=== PATIENT | female | born 1990 | race Caucasian/White ===

== ENCOUNTER 2017-01-26 15:21 | Inpatient (IN) ==
[2017-01-26] MEDS ORDERED: 0.9 % Sodium Chloride 1,000 ML IVC ONE (15:49)
[2017-01-26] MEDS ORDERED: *HR* Morphine 2 MG/ML SYRINGE IVP ONE ×2 (15:49→22:46)
[2017-01-26 16:19] LABS: Basophils % 0.1 %; Eosinophils # 0.1 K/mcL (0.0-0.6); Eosinophils % 0.7 %; Hematocrit 37.5 % (35.3-44.9); Hemoglobin 12.5 g/dL (11.5-15.4); Immature Granulocytes % 0.5 % (0-4); Lymphocytes # 2.4 K/mcL (0.6-4.6); Lymphocytes % 17.3 %; Mean Corpuscular HGB Conc 33.3 g/dL (31.6-35.5); Mean Corpuscular Hemoglobin 30.9 pg (28.0-33.3); Mean Corpuscular Volume 92.6 fL (83.0-100.0); Mean Platelet Volume 8.7 fL (9.4-12.4); Monocytes # 0.8 K/mcL (0.0-1.3); Monocytes % 5.9 %; Neutrophils # 10.3 K/mcL (1.6-8.9); Platelet Count 249 K/mcL (140-400); Red Blood Count 4.05 M/mcL (3.82-4.97); Red Cell Distribution Width 13.1 % (11.5-14.5); Segmented Neutrophils % 75.5 %
[2017-01-26 16:34] LABS: Alanine Aminotransferase 19 Units/L (0-55); Albumin 3.4 g/dL (3.5-5.0); Albumin/Globulin Ratio 1.1 (1.1-2.2); Alkaline Phosphatase 31 Units/L (38-126); Amylase 38 Units/L (25-125); Aspartate Amino Transferase 19 Units/L (5-34); BUN/Creatinine Ratio 23 (6-26); Bilirubin,Direct 0.2 mg/dL (0.0-0.5); Bilirubin,Indirect 0.3 mg/dL (0.0-1.2); Bilirubin,Total 0.5 mg/dL (0.2-1.2); Blood Urea Nitrogen 14 mg/dL (7-20); Calcium 8.9 mg/dL (8.6-10.8); Carbon Dioxide 22 mEq/L (19-29); Chloride 108 mEq/L (98-109); Globulin 3.2 g/dL (2.4-3.5); Glucose 92 mg/dL (70-99); Lipase 14 Units/L (8-78); Osmolality,Calculated 286 (280-300); Potassium 3.9 mEq/L (3.5-4.5); Sodium 138 mEq/L (136-145); Total Protein 6.6 g/dL (6.0-8.3); eGFR For African Americans > 60 (> 60); eGFR For Non-African Americans > 60 (> 60)
[2017-01-26 18:15] LABS: Bilirubin,Urine Negative (Negative); Blood,Urine Small (Negative); Color,Urine Yellow (Yellow); Glucose,Urine (UA) Normal (Normal); Ketones,Urine Negative (Negative); Leukocyte Esterase,Urine Negative (Negative); Nitrite,Urine Negative (Negative); Protein,Urine Trace mg/dL (Neg-Trace); Urobilinogen,Urine Normal (Normal)
[2017-01-26 18:17] LABS: Bacteria,Urine Moderate per hpf (None-Few); Hyaline Casts,Urine None Seen per lpf (None-Few); Squamous Epithelial Cell,Urine Many per lpf (None-Few); WBC,Urine 0-3 per hpf (0-3)
[2017-01-26 18:18] LABS: Clarity,Urine Slightly Hazy (Clear)
[2017-01-26 18:20] LABS: Amphetamine Screen,Urine Negative ng/mL (Cutoff=1000); Barbiturate Screen,Urine Negative ng/mL (Cutoff=200); Benzodiazepines Screen,Urine Negative ng/mL (Cutoff=200); Cannabinoid Screen,Urine Positive ng/mL (Cutoff = 50); Cocaine Screen,Urine Negative ng/mL (Cutoff= 300); Opiate Screen,Urine Positive ng/mL (Cutoff=300); Phencyclidine Screen,Urine Negative ng/mL (Cutoff=25)
[2017-01-26] MEDS ORDERED: *HR* LORazepam 2 MG/ML VIAL IVP ONE (18:23)
[2017-01-26] MEDS ORDERED: *HR* OxyCODONE/APAP 5/325 TABLET PO ONE (18:23)
[2017-01-26] MEDS ORDERED: MetroNIDAZOLE 250 MG/50 ML 250 MG/50 ML BAG IVPB ONE (18:37)
[2017-01-26] MEDS: Nicotine 21 MG PATCH.TD24 TD SCH (19:30)
--- NOTE | 2017-01-26 19:30 | Internal Med History&Physical ---
Date of Encounter: 01/26/17 Time of Encounter: 19:27 Assessment and Plan (1) Intractable abdominal pain Current visit: Yes Status: Acute Pain in the right lower quadrant, it is only concern is for acute appendicitis. CT of the abdomen did not reveal. With findings consistent with appendicitis. The emergency department physician discussed the case with the surgeon. Surgery did not accept the patient for admission under their service. Patient admitted under medicine for further management. We will continue with IV antibiotics. GI prophylaxis, DVT prophylaxis. A consultation with the surgical team will be requested for further evaluation. IV fluids. Nothing per mouth. Discussed with the patient. Internal Medicine - H&P: HPI Chief complaint: abd pain Admitted From: Emergency Dept Plans for Post Hospital Care: Home History of present illness: Ms. Castellon is a 26 year old female here complaining of abdominal pain which started today at around 2 AM. Pain is associated with lack of appetite and chills, patient denies fever, nausea or vomiting. Patient has some leukocytosis. CT scan of the abdomen was obtained in the emergency department and not clearly identified appendicitis, however would not rule out early appendicitis. ED staff discussed the case with the surgeon who felt that appendicitis is unlikely and recommended IV antibiotics and admission to medicine. The patient denies history of asthma, hypertension, diabetes. She smokes cigarettes 1/2 pack daily and marijuana occasionally. 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 The patient had a recent dental abscess and was prescribed amoxicillin. Past Med Surg Social Fam HX - Past Medical History Medical history: hepatitis, other Psychiatric history: anxiety, bipolar, depression - Social History Smoking Status: Current every day smoker Smokeless Tobacco Status: No Alcohol use: none Drug use: none, other Internal Medicine - H&P: Meds Dicyclomine [Bentyl] 10 mg PO BID #30 capsule 02/13/16 [Rx] Ibuprofen [Motrin] 600 mg PO TID PRN #30 tab 02/13/16 [Rx] Naproxen [Naprosyn] 250 mg PO BID PRN #10 tablet 02/22/16 [Rx] Ondansetron ODT [Zofran ODT] 4 mg SL ONCE PRN #20 tab.rapdis 05/24/16 [Rx] Oxycodone HCl/Acetaminophen [Percocet 5-325 mg Tablet] 1 each PO Q6-8H PRN #15 tablet 07/22/16 [Rx] Ibuprofen [Motrin] 600 mg PO Q8HR #20 tab 05/29/16 [Rx] Ondansetron ODT [Zofran ODT] 4 mg SL Q8HR #20 tab.rapdis 05/29/16 [Rx] Benzonatate [Tessalon] 100 mg PO TID #30 capsule 10/12/16 [Rx] Cefdinir [Omnicef] 300 mg PO BID #10 capsule 10/12/16 [Rx] Amoxicillin 500 mg PO TID #21 tablet 01/24/17 [Rx] HYDROcodone/Acet 10/325 mg [[place] 10-325 mg] 1 tab PO Q6HR PRN #12 tab 01/24/17 [Rx] Allergies Cinnamon Allergy (Verified 01/26/17 15:34) Swelling of Lip/Tongue/Throat All Systems PM: A 10-system review of systems was performed and is negative for pertinent findings except as documented above in the HPI. - Constitutional Constitutional: as per HPI, anorexia, chills, excessive sweating, no fever(s), no night sweats - EENT Eyes: as per HPI, no change in vision, no discharge, no pain, no photophobia Ears: as per HPI, no ear discharge, no ear pain, no tinnitus Nose, mouth and throat: as per HPI, no dysphagia, no nasal discharge, no neck pain, no sore throat - Breasts Breasts: as per HPI - Cardiovascular Cardiovascular ROS IM: as per HPI, no chest pain, no diaphoresis, no dyspnea, no lightheadedness, no palpitations, no syncope - Respiratory Respiratory: as per HPI, no cough, no dyspnea, no wheezing, no excessive phlegm production - Gastrointestinal Gastrointestinal: as per HPI, no abdominal pain, no diarrhea, no hematemesis, no hematochezia, no melena, no nausea, no vomiting - Genitourinary Genitourinary: as per HPI, no change in urinary stream, no dysuria, no flank pain, no hematuria Menstruation: as per HPI - Musculoskeletal Musculoskeletal ROS IM: as per HPI, no numbness, no tingling - Integumentary Integumentary IM: as per HPI, no rash, no unusual bruising - Neurological Neurological ROS: as per HPI, no confusion, no convulsions, no focal weakness, no numbness, no tingling, no tremor(s) - Psychiatric Psychiatric: as per HPI - Endocrine Endocrine IM: as per HPI - Hematologic/Lymphatic Hematologic/Lymphatic: as per HPI, no easy bruising - Allergic/Immunologic Allergic/Immunologic: as per HPI - Constitutional Vitals: Temp Pulse Resp BP Pulse Ox 97.8 F 85 16 110/68 97 01/26/17 15:30 01/26/17 18:00 01/26/17 18:00 01/26/17 18:00 01/26/17 18:00 General appearance: Present: cooperative, no acute distress - Head Head exam: Present: atraumatic, normocephalic - Eye Eye exam: Present: PERRL, conjuntiva pink, sclera anicteric Pupils: Present: PERRL - Neck Neck exam general surgery: Present: supple, trachea midline. Absent: lymphadenopathy - Respiratory Respiratory exam: Present: CTAB. Absent: accessory muscle use, rales, rhonchi, wheezes - Cardiovascular Cardiovascular exam: Present: RRR, +S1, +S2. Absent: diastolic murmur, gallop, rubs, systolic murmur - GI/Abdominal GI/Abdominal exam: Present: normal bowel sounds, soft. Absent: distended, tenderness Additional comments: tenderness upon palpation of RLQ. - Extremities Exam Extremities exam: Present: warm, radial pulses palpable and symetrical. Absent : calf tenderness, cyanotic, pedal edema - Neurological Exam Neurological exam: Present: CN II-XII intact, oriented X3, no focal deficits. Absent: pronater drift, facial droop, speech deficit - Skin Skin exam: Present: dry, intact Internal Med - H&P Results - Labs CBC & Chem 7: 01/26/17 16:08 01/26/17 16:08 Labs: Short CBC 01/26/17 Range/Units 16:08 WBC 13.6 H (4.3-11.1) K/mcL Hgb 12.5 (11.5-15.4) g/dL Hct 37.5 (35.3-44.9) % Plt Count 249 (140-400) K/mcL Neutrophils # 10.3 H (1.6-8.9) K/mcL BMP 01/26/17 16:08 Sodium 138 Potassium 3.9 Chloride 108 Carbon Dioxide 22 BUN 14 Creatinine 0.62 Glucose 92 Calcium 8.9 Liver Function 01/26/17 Range/Units 16:08 Total Bilirubin 0.5 (0.2-1.2) mg/dL Direct Bilirubin 0.2 (0.0-0.5) mg/dL AST 19 (5-34) Units/L ALT 19 (0-55) Units/L Alkaline Phosphatase 31 L (38-126) Units/L Albumin 3.4 L (3.5-5.0) g/dL Urine 01/26/17 Range/Units 18:04 Urine Color Yellow (Yellow) Urine Clarity Slightly Hazy (Clear) Urine pH 8.0 (5.0-8.0) pH Units Ur Specific [place] 1.030 H (1.010-1.025) Urine Protein Trace (Neg-Trace) mg/dL Urine Glucose (UA) Normal (Normal) mg/dL - Impressions ITS Impressions Abdomen/Pelvis CTA 01/26/17 15:50 IMPRESSION: 1. Focal inflammation in the pericolonic fat posterior to the cecum in the region of the appendix. However, the appendix is not dilated and appears similar on the previous CT. The findings may be related to a focal colitis or possibly a diverticulitis. Since the inflammatory changes are immediately adjacent to the appendix, early appendicitis cannot be excluded. Close follow-up recommended. 2. Otherwise unremarkable CTA of the abdomen and pelvis. D/ / 01/26/2017 18:00:57 Kiran Contreras MD / preethi Interpreting Provider: Kiran Contreras MD
[2017-01-26] MEDS ORDERED: Naloxone 0.4 MG/ML INJ IVP PRN (19:51)
[2017-01-26] MEDS ORDERED: Ondansetron 4 MG/2 ML VIAL IVP PRN (19:51)
--- NOTE | 2017-01-26 20:01 | Emergency Department Note ---
Disposition Clinical Impression: Abdominal pain Qualifiers: Abdominal location: right lower quadrant Qualified Code(s): R10.31 - Right lower quadrant pain Disposition: Admitted As Inpatient Condition: Good General Adult HPI - General Chief complaint: ED Abdominal Pain Stated complaint: abd pain Source: patient Nursing Notes Reviewed: Yes Vital Signs Reviewed: Yes - History of Present Illness HPI Narrative: 26-year-old female presents with concern for right lower quadrant abdominal pain. The onset of her symptoms was fairly acute. She admits to extreme tenderness to right lower quadrant. No vomiting but feels nauseous. No diarrhea or blood in her stool. No history of previous abdominal surgeries but she does admit to having ovarian cysts in the past. Pain Scale: 6 - Related Data Previous Rx's Medication Instructions Recorded Dicyclomine [Bentyl] 10 mg PO BID #30 capsule 02/13/16 Ibuprofen [Motrin] 600 mg PO TID PRN #30 tab 02/13/16 Naproxen [Naprosyn] 250 mg PO BID PRN #10 tablet 02/22/16 Ondansetron ODT [Zofran ODT] 4 mg SL ONCE PRN #20 tab.rapdis 05/24/16 Oxycodone HCl/Acetaminophen 1 each PO Q6-8H PRN #15 tablet 05/24/16 [Percocet 5-325 mg Tablet] Ibuprofen [Motrin] 600 mg PO Q8HR #20 tab 05/29/16 Ondansetron ODT [Zofran ODT] 4 mg SL Q8HR #20 tab.rapdis 05/29/16 Benzonatate [Tessalon] 100 mg PO TID #30 capsule 10/12/16 Cefdinir [Omnicef] 300 mg PO BID #10 capsule 10/12/16 Amoxicillin 500 mg PO TID #21 tablet 01/24/17 HYDROcodone/Acet 10/325 mg [[place] 1 tab PO Q6HR PRN #12 tab 01/24/17 10-325 mg] Allergies Allergy/AdvReac Type Severity Reaction Status Date / Time Cinnamon Allergy Swelling Verified 01/26/17 15:34 of Lip/Tongue/Throat All systems ED: reviewed and negative except as stated. Past Medical History - Past Medical History Medical history: Reports: hepatitis, other Psychiatric history: Reports: anxiety, bipolar, depression RESPITE PROVIDER history: Reports: no RESPITE PROVIDER history - Social History Smoking Status: Current every day smoker Smokeless Tobacco Status: No Alcohol use: Reports: none Drug use: Reports: none, other Physical Exam Alert and oriented, complains of abdominal pain Pupils are equal round reactive to light TMs are clear bilaterally, mucous murmurs moist Trachea is midline Cardiovascular exam shows regular rate and rhythm Pulmonary exam shows no rales, rhonchi, wheezing Abdominal examination shows tenderness in the right lower quadrant with localized peritonitis to the right lower quadrant and mild guarding to the right lower quadrant Extremities are without clubbing cyanosis or edema Neurologic exam is without focal neurological deficit Skin is pink warm and dry - General General appearance: alert, in no apparent distress Course Vital Signs Temperature 97.8 F 01/26/17 15:30 Pulse Rate 103 01/26/17 15:30 Respiratory Rate 16 01/26/17 15:30 Blood Pressure 115/79 01/26/17 15:30 O2 Sat by Pulse Oximetry 98 01/26/17 15:30 Temperature 97.8 F 01/26/17 15:30 Pulse Rate 85 01/26/17 18:00 Respiratory Rate 16 01/26/17 18:00 Blood Pressure 110/68 01/26/17 18:00 O2 Sat by Pulse Oximetry 97 01/26/17 18:00 Oxygen Delivery Oxygen Delivery Room Air Medical Decision Making - MDM Narrative Medical decision making narrative: Nonspecific inflammation on CAT scan. This is in the right lower quadrant. It could represent colitis or early appendicitis. I do feel clinically she may have appendicitis. I did discuss the case with the on-call surgeon Dr. Fernandes. He does not feel this represents acute appendicitis but she will need admission for serial raya exams. He is recommending admission to medicine service. Cipro and Flagyl initiated. Pain control was initiated. Patient will be admitted for serial abdominal exams and to rule out appendicitis CURRENTLY treating for possible colitis. I did consider ovarian torsion, differential however she has findings of colitis first appendicitis. - Medical Records Medical records reviewed: Yes I reviewed the patient's medical records. - Lab Data Lab results reviewed: Yes I reviewed the patient's lab results. Result diagrams: 01/26/17 16:08 01/26/17 16:08 Lab Results 01/26/17 01/26/17 01/26/17 Range/Units 16:08 16:08 18:04 WBC 13.6 H (4.3-11.1) K/mcL RBC 4.05 (3.82-4.97) M/mcL Hgb 12.5 (11.5-15.4) g/dL Hct 37.5 (35.3-44.9) % MCV 92.6 (83.0-100.0) fL MCH 30.9 (28.0-33.3) pg MCHC 33.3 (31.6-35.5) g/dL RDW 13.1 (11.5-14.5) % Plt Count 249 (140-400) K/mcL MPV 8.7 L (9.4-12.4) fL Immature Gran % 0.5 (0-4) % Seg Neutrophils % 75.5 % Lymphocytes % 17.3 % Monocytes % 5.9 % Eosinophils % 0.7 % Basophils % 0.1 % Neutrophils # 10.3 H (1.6-8.9) K/mcL Lymphocytes # 2.4 (0.6-4.6) K/mcL Monocytes # 0.8 (0.0-1.3) K/mcL Eosinophils # 0.1 (0.0-0.6) K/mcL Basophils # 0.0 (0.0-0.2) K/mcL Sodium 138 (136-145) mEq/L Potassium 3.9 (3.5-4.5) mEq/L Chloride 108 (98-109) mEq/L Carbon Dioxide 22 (19-29) mEq/L BUN 14 (7-20) mg/dL Creatinine 0.62 (0.57-1.11) mg/dL Est GFR ( Amer) > 60 (> 60) Est GFR (Non-Af Amer) > 60 (> 60) BUN/Creatinine Ratio 23 (6-26) Glucose 92 (70-99) mg/dL Calculated Osmolality 286 (280-300) Calcium 8.9 (8.6-10.8) mg/dL Total Bilirubin 0.5 (0.2-1.2) mg/dL Direct Bilirubin 0.2 (0.0-0.5) mg/dL Indirect Bilirubin 0.3 (0.0-1.2) mg/dL AST 19 (5-34) Units/L ALT 19 (0-55) Units/L Alkaline Phosphatase 31 L (38-126) Units/L Serum Total Protein 6.6 (6.0-8.3) g/dL Albumin 3.4 L (3.5-5.0) g/dL Globulin 3.2 (2.4-3.5) g/dL Albumin/Globulin Ratio 1.1 (1.1-2.2) Amylase 38 (25-125) Units/L Lipase 14 (8-78) Units/L Urine Color Yellow (Yellow) Urine Clarity Slightly Hazy (Clear) Urine pH 8.0 (5.0-8.0) pH Units Ur Specific [place] 1.030 H (1.010-1.025) Urine Protein Trace (Neg-Trace) mg/dL Urine Glucose (UA) Normal (Normal) mg/dL Urine Ketones Negative (Negative) mg/dL Urine Blood Small H (Negative) Urine Nitrite Negative (Negative) Urine Bilirubin Negative (Negative) Urine Urobilinogen Normal (Normal) mg/dL Ur Leukocyte Esterase Negative (Negative) Urine Microscopic RBC 3-5 H (0-3) per hpf Urine Microscopic WBC 0-3 (0-3) per hpf Ur Squamous Epith Cells Many H (None-Few) per lpf Urine Bacteria Moderate H (None-Few) per hpf Hyaline Casts None Seen (None-Few) per lpf Ur Culture Indicated? NO (NO) Urine Test (Negative) Urine Opiates Screen (Iqqvjd=784) ng/mL Ur Barbiturates Screen (Tuwzel=035) ng/mL Ur Phencyclidine Scrn (Cutoff=25) ng/mL Ur Amphetamines Screen (Xxkonk=0341) ng/mL U Benzodiazepines Scrn (Osyyai=168) ng/mL Urine Cocaine Screen (Cutoff= 300) ng/mL U Marijuana (THC) Screen (Cutoff = 50) ng/mL 01/26/17 01/26/17 Range/Units 18:04 18:04 WBC (4.3-11.1) K/mcL RBC (3.82-4.97) M/mcL Hgb (11.5-15.4) g/dL Hct (35.3-44.9) % MCV (83.0-100.0) fL MCH (28.0-33.3) pg MCHC (31.6-35.5) g/dL RDW (11.5-14.5) % Plt Count (140-400) K/mcL MPV (9.4-12.4) fL Immature Gran % (0-4) % Seg Neutrophils % % Lymphocytes % % Monocytes % % Eosinophils % % Basophils % % Neutrophils # (1.6-8.9) K/mcL Lymphocytes # (0.6-4.6) K/mcL Monocytes # (0.0-1.3) K/mcL Eosinophils # (0.0-0.6) K/mcL Basophils # (0.0-0.2) K/mcL Sodium (136-145) mEq/L Potassium (3.5-4.5) mEq/L Chloride (98-109) mEq/L Carbon Dioxide (19-29) mEq/L BUN (7-20) mg/dL Creatinine (0.57-1.11) mg/dL Est GFR ( Amer) (> 60) Est GFR (Non-Af Amer) (> 60) BUN/Creatinine Ratio (6-26) Glucose (70-99) mg/dL Calculated Osmolality (280-300) Calcium (8.6-10.8) mg/dL Total Bilirubin (0.2-1.2) mg/dL Direct Bilirubin (0.0-0.5) mg/dL Indirect Bilirubin (0.0-1.2) mg/dL AST (5-34) Units/L ALT (0-55) Units/L Alkaline Phosphatase (38-126) Units/L Serum Total Protein (6.0-8.3) g/dL Albumin (3.5-5.0) g/dL Globulin (2.4-3.5) g/dL Albumin/Globulin Ratio (1.1-2.2) Amylase (25-125) Units/L Lipase (8-78) Units/L Urine Color (Yellow) Urine Clarity (Clear) Urine pH (5.0-8.0) pH Units Ur Specific [place] (1.010-1.025) Urine Protein (Neg-Trace) mg/dL Urine Glucose (UA) (Normal) mg/dL Urine Ketones (Negative) mg/dL Urine Blood (Negative) Urine Nitrite (Negative) Urine Bilirubin (Negative) Urine Urobilinogen (Normal) mg/dL Ur Leukocyte Esterase (Negative) Urine Microscopic RBC (0-3) per hpf Urine Microscopic WBC (0-3) per hpf Ur Squamous Epith Cells (None-Few) per lpf Urine Bacteria (None-Few) per hpf Hyaline Casts (None-Few) per lpf Ur Culture Indicated? (NO) Urine Test Negative (Negative) Urine Opiates Screen Positive H (Kzbcwt=919) ng/mL Ur Barbiturates Screen Negative (Jicmte=663) ng/mL Ur Phencyclidine Scrn Negative (Cutoff=25) ng/mL Ur Amphetamines Screen Negative (Ineilr=6777) ng/mL U Benzodiazepines Scrn Negative (Ipyjvx=533) ng/mL Urine Cocaine Screen Negative (Cutoff= 300) ng/mL U Marijuana (THC) Screen Positive H (Cutoff = 50) ng/mL
[2017-01-26] MEDS: 0.9 % Sodium Chloride 1,000 ML IVC SCH (21:38)
[2017-01-27] MEDS: Piperacillin/Tazobactam 3.375 GM in D5% in Water (Mini-Bag+) 100 ML IVPB SCH ×4 (00:01→23:47)
[2017-01-27 04:45] LABS: Basophils % 0.4 %; Eosinophils # 0.1 K/mcL (0.0-0.6); Hematocrit 35.3 % (35.3-44.9); Hemoglobin 11.9 g/dL (11.5-15.4); Immature Granulocytes % 0.3 % (0-4); Lymphocytes # 2.8 K/mcL (0.6-4.6); Lymphocytes % 26.9 %; Mean Corpuscular HGB Conc 33.7 g/dL (31.6-35.5); Mean Corpuscular Hemoglobin 31.5 pg (28.0-33.3); Mean Corpuscular Volume 93.4 fL (83.0-100.0); Mean Platelet Volume 9.2 fL (9.4-12.4); Monocytes # 0.7 K/mcL (0.0-1.3); Monocytes % 6.7 %; Neutrophils # 6.7 K/mcL (1.6-8.9); Platelet Count 241 K/mcL (140-400); Red Blood Count 3.78 M/mcL (3.82-4.97); Red Cell Distribution Width 13.2 % (11.5-14.5); Segmented Neutrophils % 64.7 %
[2017-01-27] MEDS ORDERED: *HR* Morphine 2 MG/ML SYRINGE IVP ONE (04:51)
[2017-01-27 04:52] LABS: Alanine Aminotransferase 17 Units/L (0-55); Alkaline Phosphatase 35 Units/L (38-126); Aspartate Amino Transferase 18 Units/L (5-34); BUN/Creatinine Ratio 15 (6-26); Bilirubin,Total 0.5 mg/dL (0.2-1.2); Blood Urea Nitrogen 10 mg/dL (7-20); Calcium 8.2 mg/dL (8.6-10.8); Carbon Dioxide 20 mEq/L (19-29); Chloride 108 mEq/L (98-109); Glucose 88 mg/dL (70-99); Osmolality,Calculated 280 (280-300); Potassium 3.7 mEq/L (3.5-4.5); Sodium 136 mEq/L (136-145); eGFR For African Americans > 60 (> 60); eGFR For Non-African Americans > 60 (> 60)
[2017-01-27] MEDS: Famotidine 20 MG/2 ML VIAL IVP SCH ×2 (05:00→17:03)
[2017-01-27] MEDS: *HR* Heparin 5,000 UNIT/ML VIAL SQ SCH ×2 (05:01→17:03)
--- NOTE | 2017-01-27 07:20 | General Surgery Consult Note ---
Date of Encounter: 01/27/17 Time of Encounter: 07:18 Assessment and Plan (1) Colitis presumed infectious Current Visit: Yes Status: Acute I explained to the patient that I personally reviewed the CT scan images and report which shows some inflammation at the level near the level of the appendix but the appendix itself appears nondistended. His looks primarily like a typhlitis or inflammation at the level of the cecum. Diagnosis does include appendicitis however I think the former is more likely. I agree with IV antibiotics and explained to the patient that he likely takes at least 24-48 hours before there will be any notable improvement in her symptoms. We will follow with you. History of Present Illness Consult date: 01/27/17 Reason for consult: other (right lower abdominal pain) History of present illness: The patient is a 26-year-old female with no significant past medical history who states that 2 days ago she had the onset of some right sided lower quadrant abdominal pain. He felt that she may have pulled something due to some strenuous activity at work. 2 AM on Friday morning the pain was a sharp stabbing pain but tolerable but over the next 24 hours the pain increased in severity so she presented to [facility] for further evaluation. She denies any nausea or vomiting and had diarrhea on Friday 2 days ago. Her last bowel movement was Friday and normally she has a bowel movement 2-3 times per day. Denies any rectal bleeding and denies any fever or chill symptoms at home. Past Med Surg Social Fam HX - Past Medical History Medical history: hepatitis, other Psychiatric history: anxiety, bipolar, depression - Social History Smoking Status: Current every day smoker Smokeless Tobacco Status: No Alcohol use: none Drug use: none, other - Family History Maternal Grandfather Hx Family Cancer: Yes (skin) Hx Family Endocrine Disorder: Yes (DM) Medications and Allergies HYDROcodone/Acet 10/325 mg [[place] 10-325 mg] 1 tab PO Q6HR PRN #12 tab 01/24/17 [Rx] Gabapentin [Neurontin] 600 mg PO TID 01/26/17 [History] Allergies Cinnamon Allergy (Verified 01/27/17 07:13) Swelling of Lip/Tongue/Throat Review of Systems All systems PM: reviewed and no additional remarkable complaints except as stated All systems PM: A 10-system review of systems was performed and is negative for pertinent findings except as documented above in the HPI. General Surgery Exam Initial Vital Signs Temp Pulse Resp BP Pulse Ox 97.8 F 103 16 115/79 98 01/26/17 15:30 01/26/17 15:30 01/26/17 15:30 01/26/17 15:30 01/26/17 15:30 - General physical appearance well developed, well nourished, other (Mild distress) - Eyes PERRL, normal ocular movement - Neck no masses, trachea midline, no lymphadectomy - Respiratory normal expansion, normal respiratory effort, clear to auscultation - Cardiovascular Cardiovascular exam: Present: no murmurs/rubs/gallops - Abdomen Abdomen general surgery: Present: bowel sounds present, soft (obese, pain to palpation in the right lower quadrant. No masses noted.) - Integumentary Integumentary general surgery: Present: warm and dry - Neurologic Present: CN 2-12 grossly intact - Musculoskeletal Present: other (No clubbing, cyanosis, or edema) - Psychiatric Psychiatric general surgery: Present: A&Ox3 Exam Initial Vital Signs Temp Pulse Resp BP Pulse Ox 97.8 F 103 16 115/79 98 01/26/17 15:30 01/26/17 15:30 01/26/17 15:30 01/26/17 15:30 01/26/17 15:30 Results - Labs 01/27/17 04:03 01/27/17 04:03 Abnormal lab results RBC 3.78 M/mcL (3.82-4.97) L 01/27/17 04:03 MPV 9.2 fL (9.4-12.4) L 01/27/17 04:03 Calcium 8.2 mg/dL (8.6-10.8) L 01/27/17 04:03 Alkaline Phosphatase 35 Units/L (38-126) L 01/27/17 04:03 Albumin 3.0 g/dL (3.5-5.0) L 01/27/17 04:03 Albumin/Globulin Ratio 1.0 (1.1-2.2) L 01/27/17 04:03 Ur Specific [place] 1.030 (1.010-1.025) H 01/26/17 18:04 Urine Blood Small (Negative) H 01/26/17 18:04 Urine Microscopic RBC 3-5 per hpf (0-3) H 01/26/17 18:04 Ur Squamous Epith Cells Many per lpf (None-Few) H 01/26/17 18:04 Urine Bacteria Moderate per hpf (None-Few) H 01/26/17 18:04 Urine Opiates Screen Positive ng/mL (Ypeaav=566) H 01/26/17 18:04 U Marijuana (THC) Screen Positive ng/mL (Cutoff = 50) H 01/26/17 18:04 Diabetes panel 01/27/17 Range/Units 04:03 Sodium 136 (136-145) mEq/L Potassium 3.7 (3.5-4.5) mEq/L Chloride 108 (98-109) mEq/L Carbon Dioxide 20 (19-29) mEq/L BUN 10 (7-20) mg/dL Creatinine 0.66 (0.57-1.11) mg/dL Glucose 88 (70-99) mg/dL Calcium 8.2 L (8.6-10.8) mg/dL AST 18 (5-34) Units/L ALT 17 (0-55) Units/L Alkaline Phosphatase 35 L (38-126) Units/L Albumin 3.0 L (3.5-5.0) g/dL Calcium panel 01/27/17 Range/Units 04:03 Calcium 8.2 L (8.6-10.8) mg/dL Albumin 3.0 L (3.5-5.0) g/dL Pituitary panel 01/27/17 Range/Units 04:03 Sodium 136 (136-145) mEq/L Potassium 3.7 (3.5-4.5) mEq/L Chloride 108 (98-109) mEq/L Carbon Dioxide 20 (19-29) mEq/L BUN 10 (7-20) mg/dL Creatinine 0.66 (0.57-1.11) mg/dL Glucose 88 (70-99) mg/dL Calcium 8.2 L (8.6-10.8) mg/dL Adrenal panel 01/27/17 Range/Units 04:03 Sodium 136 (136-145) mEq/L Potassium 3.7 (3.5-4.5) mEq/L Chloride 108 (98-109) mEq/L Carbon Dioxide 20 (19-29) mEq/L BUN 10 (7-20) mg/dL Creatinine 0.66 (0.57-1.11) mg/dL Glucose 88 (70-99) mg/dL Calcium 8.2 L (8.6-10.8) mg/dL Total Bilirubin 0.5 (0.2-1.2) mg/dL AST 18 (5-34) Units/L ALT 17 (0-55) Units/L Alkaline Phosphatase 35 L (38-126) Units/L Albumin 3.0 L (3.5-5.0) g/dL All other labs normal. - Imaging CT scan - abdomen: report reviewed, image reviewed (Noted inflammation near the appendix but the appendix appears normal. The inflammation appears to be at the level of the cecum. No free air or free fluid identified.) Consult Discharge Plan - Plan Referrals: Esvin-Leah Mccray DO [Primary Care Provider] -
[2017-01-27] MEDS: Nicotine 21 MG PATCH.TD24 TD SCH ×2 (08:12→23:47)
[2017-01-27] MEDS ORDERED: *HR* Morphine 2 MG/ML SYRINGE IVP PRN (08:21)
[2017-01-27] MEDS ORDERED: Acetaminophen 325 MG TABLET PO PRN (08:21)
[2017-01-27] MEDS ORDERED: Ondansetron 4 MG/2 ML VIAL IVP PRN (08:25)
[2017-01-27] MEDS: 0.9 % Sodium Chloride 1,000 ML IVC SCH ×2 (09:00→14:20)
[2017-01-27] MEDS: *HR* Morphine 2 MG/ML SYRINGE IVP PRN ×2 (09:01→14:14)
--- NOTE | 2017-01-27 16:58 | Internal Med Progress Note ---
Date of Encounter: 01/27/17 Time of Encounter: 16:15 - Assessment and plan (1) Colitis presumed infectious Current Visit: Yes Status: Acute Assessment and plan: Surgery on board. Will increase her pain medication given that her pain is uncontrolled. She complains of severe right lower quadrant abdominal pain. She does have a clear liquid diet available to her however she states that ingesting anything exacerbates her pain so she has not been able to drink today. Continue Zosyn. Surgery on board, no surgery indicated at this time. On examination, abdomen soft and nondistended with positive bowel sounds in all 4 quadrants. Markedly tender to suprapubic and right lower quadrant abdominal area. She has been flatulent. Leukocytosis resolved. Urinalysis unremarkable. Continue IV fluids and will increase her pain medication. ITS Impressions Abdomen/Pelvis CTA 01/26/17 15:50 IMPRESSION: 1. Focal inflammation in the pericolonic fat posterior to the cecum in the region of the appendix. However, the appendix is not dilated and appears similar on the previous CT. The findings may be related to a focal colitis or possibly a diverticulitis. Since the inflammatory changes are immediately adjacent to the appendix, early appendicitis cannot be excluded. Close follow-up recommended. 2. Otherwise unremarkable CTA of the abdomen and pelvis. D/ / 01/26/2017 18:00:57 Kiran Contreras MD / preethi Interpreting Provider: Kiran Contreras MD (2) Abdominal pain Current Visit: Yes Status: Acute (3) Tobacco abuse Current Visit: Yes Status: Chronic Assessment and plan: Nicotine replacement therapy, declined counseling at this time (4) Marijuana abuse Current Visit: Yes Status: Chronic - Subjective Interval history: Patient seen and examined. On examination, patient resting in bed with her eyes closed. She states that her pain is not controlled and she is complaining of severe pain to her right lower quadrant. She states she tried to eat but this is exacerbating her abdominal pains that she has not been able to eat or drink today. - Constitutional Vitals: Temp Pulse Resp BP Pulse Ox 98.4 F 80 14 105/69 97 01/27/17 15:19 01/27/17 15:19 01/27/17 15:19 01/27/17 15:19 01/27/17 15:19 General appearance: Present: cooperative, mild distress (2/2 pain), A&O X 3, pleasant, answers questions appropriately - Head Head exam: Present: atraumatic, normocephalic - Eye Eye exam: Present: PERRL, conjuntiva pink, sclera anicteric Pupils: Present: PERRL - Neck Neck exam general surgery: Present: supple, trachea midline. Absent: lymphadenopathy - Respiratory Respiratory exam: Present: CTAB. Absent: accessory muscle use, rales, respiratory distress, rhonchi, wheezes - Cardiovascular Cardiovascular exam: Present: RRR, +S1, +S2. Absent: diastolic murmur, gallop, rubs, systolic murmur - GI/Abdominal GI/Abdominal exam: Present: guarding, normal bowel sounds, soft, tenderness, no peritoneal signs. Absent: distended - Extremities Exam Extremities exam: Present: warm, radial pulses palpable and symetrical. Absent : calf tenderness, cyanotic, pedal edema - Neurological Exam Neurological exam: Present: alert, CN II-XII intact, oriented X3, no focal deficits, strengths equal and symetr throughout. Absent: pronater drift, facial droop, speech deficit - Skin Skin exam: Present: dry, intact, pallor, warm Internal Medicine: Result - Labs CBC & Chem 7: 01/27/17 04:03 01/27/17 04:03 Labs: Short CBC 01/27/17 Range/Units 04:03 WBC 10.3 (4.3-11.1) K/mcL Hgb 11.9 (11.5-15.4) g/dL Hct 35.3 (35.3-44.9) % Plt Count 241 (140-400) K/mcL Neutrophils # 6.7 (1.6-8.9) K/mcL BMP 01/27/17 04:03 Sodium 136 Potassium 3.7 Chloride 108 Carbon Dioxide 20 BUN 10 Creatinine 0.66 Glucose 88 Calcium 8.2 L Liver Function 01/27/17 Range/Units 04:03 Total Bilirubin 0.5 (0.2-1.2) mg/dL AST 18 (5-34) Units/L ALT 17 (0-55) Units/L Alkaline Phosphatase 35 L (38-126) Units/L Albumin 3.0 L (3.5-5.0) g/dL Consult Discharge Plan - Plan Referrals: Esvin-Leah Mccray DO [Primary Care Provider] -
[2017-01-27] MEDS ORDERED: *HR* Promethazine 25 MG/ML VIAL IVP PRN (17:02)
[2017-01-27] MEDS: *HR* HYDROmorphone (PF) 1 MG/ML SYRINGE IVP PRN ×3 (17:26→22:34)
[2017-01-28] MEDS: *HR* HYDROmorphone (PF) 1 MG/ML SYRINGE IVP PRN ×5 (01:05→23:25)
[2017-01-28] MEDS: *HR* Heparin 5,000 UNIT/ML VIAL SQ SCH ×2 (05:18→16:51)
[2017-01-28] MEDS: Famotidine 20 MG/2 ML VIAL IVP SCH ×2 (05:18→16:51)
[2017-01-28] MEDS: 0.9 % Sodium Chloride 1,000 ML IVC SCH ×3 (08:10→15:33)
[2017-01-28] MEDS: Piperacillin/Tazobactam 3.375 GM in D5% in Water (Mini-Bag+) 100 ML IVPB SCH ×3 (09:07→23:26)
[2017-01-28] MEDS: Nicotine 21 MG PATCH.TD24 TD SCH (09:07)
[2017-01-28] MEDS ORDERED: *HR* Morphine 2 MG/ML SYRINGE IVP PRN (14:04)
--- NOTE | 2017-01-28 14:05 | General Surgery Progress Note ---
Date of Encounter: 01/28/17 Time of Encounter: 14:00 - Assessment and Plan (1) Colitis presumed infectious Current Visit: Yes Status: Acute IV antibiotics Supportive care/pain control Full liquids as tolerated Serial abdominal exams Increase activity as tolerated Will continue to follow and assess progress Subjective Patient reports: still having pain (unchanged), voiding w/o difficulty, flatus, no bowel movement, nausea, vomiting, afebrile Objective Vital Signs - Last 8 Hours Temp Pulse Resp BP Pulse Ox 01/28/17 10:43 97.8 F 77 14 111/69 97 01/28/17 06:59 97.7 F 62 14 100/56 97 Intake and Output 01/27/17 01/28/17 01/28/17 23:59 07:59 15:59 Intake Total 1340 / 1340 0 / 0 100 / 100 Output Total 700 / 700 Balance 640 / 640 0 / 0 100 / 100 Intake: IV Fluids 1100 / 1100 100 / 100 0.9 % Sodium Chloride 1, 1000 / 1000 000 ML @ 125 mls/hr IVC . Q8H JAROD Rx#:[id number] Zosyn 3.375 GM In 100 / 100 100 / 100 Dextrose 5% (Minibag+) 100 ML 100 ML @ 25 mls/hr IVPB Q8HR JAROD Rx#: [id number] Oral 240 / 240 0 / 0 Output: Urine 700 / 700 Other: Meal Dinner Percent of Meal Consumed 100% # Voids 1 Weight 95.7 kg Patient Weight 01/28/17 23:59 Weight 95.7 kg - General physical appearance well developed, well nourished, moderate distress, moderate pain - Eyes normal ocular movement - ENT normal mucosa, atraumatic, normocephalic - Neck Neck exam: trachea midline - Respiratory normal respiratory effort, clear to auscultation - Cardiovascular Cardiovascular exam: Present: RRR - Abdomen Abdomen: Present: bowel sounds present (hypoactive), soft, tender Abdominal Tenderness: RLQ - Integumentary no rash - Neurologic CN 2-12 grossly intact - Psychiatric oriented to time, oriented to person, oriented to place, speech is normal, memory intact - Labs 01/30/17 04:03 01/30/17 04:03 Consult Discharge Plan - Plan Referrals: Able-Leah Mccray DO [Primary Care Provider] - - Attending Attestation I examined this patient and my medical decision-making was reviewed with the FISHER WEIR/PA/Advanced Practice Nurse/Resident Physician. I agree with the documented findings, disposition and treatment plan as described except to the extent set forth below. I reviewed the physical exam and assessment with the MARINE ANIMAL TRAINER present and agree with the above. Noted continued pain in the RLQ. No nausea or vomiting. Pain on palpation in the RLQ. No fevers or chills. WBC wnl. Continue with current diet orders and IV abx as well as serial abdominal exams.
[2017-01-28] MEDS: *HR* HYDROcodone/Acet 5/325 mg TABLET PO PRN ×2 (14:18→20:14)
--- NOTE | 2017-01-28 19:40 | Internal Med Progress Note ---
Date of Encounter: 01/28/17 Time of Encounter: 13:30 - Assessment and plan (1) Colitis presumed infectious Current Visit: Yes Status: Acute Assessment and plan: Patient was seen by surgery again today. Her right lower quadrant is tender to even light palpation. Sounds positive 4 states that she has only been able to drink water. Patient had CTA of abdomen and pelvis on the . The appendix is not dilated on that there was focal inflammation near the appendix and this appears similar as the same previous CT. Early appendicitis cannot be excluded. Otherwise unremarkable CT of abdomen and pelvis. She states that she is still bleeding and has not had a bowel movement however she has not had any by mouth intake. IV antibiotics Control pain Full liquid diet as tolerated Continue to monitor patient Monitor labs (2) Intractable abdominal pain Current Visit: Yes Status: Acute Assessment and plan: Plan as above. Pain control. (3) Abdominal pain Current Visit: Yes Status: Acute Assessment and plan: Plan as above. Pain control. Qualifiers: Abdominal location: right lower quadrant Qualified Code(s): R10.31 - Right lower quadrant pain (4) Tobacco abuse Current Visit: Yes Status: Chronic Assessment and plan: Patient states today that she might be ready to quit and we will talk about cessation practices prior to discharge. We will give her information when she is ready to be discharge. - Time Spent With Patient less than 15 minutes - Subjective Interval history: Patient evaluated, was sitting up in bed. Patient reports nausea last night none now. No vomiting. No back pain. Her right lower quadrant is tender. Bowel sounds 4. States that she has been drinking water. She does say that she is having some vaginal spotting her test was negative. She denies vaginal discharge. Her last pelvic exam was 1 year ago. - Constitutional Vitals: Temp Pulse Resp BP Pulse Ox 98.4 F 81 14 117/74 98 01/28/17 14:41 01/28/17 14:41 01/28/17 14:41 01/28/17 14:41 01/28/17 14:41 General appearance: Present: cooperative, mild distress (2/2 pain), A&O X 3, pleasant, answers questions appropriately - Head Head exam: Present: normal inspection - Eye Eye exam: Present: normal appearance, PERRL, conjuntiva pink - ENT ENT exam: Present: mucous membranes moist, normal exam - Neck Neck exam general surgery: Present: normal inspection. Absent: lymphadenopathy , tenderness - Respiratory Respiratory exam: Present: CTAB. Absent: decreased breath sounds, respiratory distress, rhonchi, stridor, wheezes, tachypnea - Cardiovascular Cardiovascular exam: Present: RRR, +S1, +S2. Absent: diastolic murmur, systolic murmur - GI/Abdominal GI/Abdominal exam: Present: normal bowel sounds, soft, tenderness. Absent: hepatomegaly Additional comments: Abdomen tender right lower quadrant. - Extremities Exam Extremities exam: Present: normal capillary refill, normal inspection, warm, radial pulses palpable and symetrical. Absent: mottling, pedal edema, tenderness - Neurological Exam Neurological exam: Present: alert, strengths equal and symetr throughout. Absent: facial droop, speech deficit Internal Medicine: Result - Labs CBC & Chem 7: 01/27/17 04:03 01/27/17 04:03 Consult Discharge Plan - Plan Referrals: Able-Leah Mccray DO [Primary Care Provider] -
[2017-01-29] MEDS: *HR* HYDROcodone/Acet 5/325 mg TABLET PO PRN ×3 (02:20→23:50)
[2017-01-29 04:20] LABS: Basophils % 0.4 %; Eosinophils # 0.1 K/mcL (0.0-0.6); Hematocrit 38.8 % (35.3-44.9); Immature Granulocytes % 0.2 % (0-4); Lymphocytes # 3.1 K/mcL (0.6-4.6); Lymphocytes % 28.5 %; Mean Corpuscular HGB Conc 33.5 g/dL (31.6-35.5); Mean Corpuscular Hemoglobin 31.6 pg (28.0-33.3); Mean Corpuscular Volume 94.2 fL (83.0-100.0); Mean Platelet Volume 9.6 fL (9.4-12.4); Monocytes # 0.5 K/mcL (0.0-1.3); Monocytes % 4.4 %; Neutrophils # 7.1 K/mcL (1.6-8.9); Platelet Count 269 K/mcL (140-400); Red Blood Count 4.12 M/mcL (3.82-4.97); Red Cell Distribution Width 12.9 % (11.5-14.5); Segmented Neutrophils % 65.5 %
[2017-01-29 04:40] LABS: BUN/Creatinine Ratio 10 (6-26); Blood Urea Nitrogen 8 mg/dL (7-20); Carbon Dioxide 24 mEq/L (19-29); Chloride 108 mEq/L (98-109); Glucose 117 mg/dL (70-99); Osmolality,Calculated 285 (280-300); Sodium 138 mEq/L (136-145); eGFR For African Americans > 60 (> 60); eGFR For Non-African Americans > 60 (> 60)
[2017-01-29 04:41] LABS: Potassium 4.1 mEq/L (3.5-4.5)
[2017-01-29] MEDS: *HR* HYDROmorphone (PF) 1 MG/ML SYRINGE IVP PRN ×4 (04:52→21:23)
[2017-01-29] MEDS: Famotidine 20 MG/2 ML VIAL IVP SCH ×2 (04:54→17:30)
[2017-01-29] MEDS: *HR* Heparin 5,000 UNIT/ML VIAL SQ SCH ×2 (04:55→17:30)
[2017-01-29] MEDS: 0.9 % Sodium Chloride 1,000 ML IVC SCH ×2 (06:34→12:22)
[2017-01-29] MEDS: Piperacillin/Tazobactam 3.375 GM in D5% in Water (Mini-Bag+) 100 ML IVPB SCH ×3 (10:03→23:45)
[2017-01-29] MEDS: Nicotine 21 MG PATCH.TD24 TD SCH (10:04)
--- NOTE | 2017-01-29 11:52 | General Surgery Progress Note ---
Date of Encounter: 01/28/17 Time of Encounter: 11:30 - Assessment and Plan (1) Colitis presumed infectious Current Visit: Yes Status: Acute IV antibiotics Supportive care/pain control Soft diet Decrease IV fluids Stool softner Serial abdominal exams Increase activity as tolerated Will continue to follow and assess progress Subjective Patient reports: feels better, still having pain, pain is less, tolerating liquids well, voiding w/o difficulty, flatus, no bowel movement, afebrile Objective Vital Signs - Last 8 Hours Temp Pulse Resp BP Pulse Ox 01/29/17 11:09 98.0 F 82 16 104/67 97 01/29/17 07:08 98.0 F 60 15 103/67 98 Intake and Output 01/28/17 01/29/17 01/29/17 23:59 07:59 15:59 Intake Total 100 / 100 1100 / 1100 Balance 100 / 100 1100 / 1100 Intake: IV Fluids 100 / 100 1100 / 1100 0.9 % Sodium Chloride 1, 1000 / 1000 000 ML @ 125 mls/hr IVC . Q8H JAROD Rx#:[id number] Zosyn 3.375 GM In 100 / 100 100 / 100 Dextrose 5% (Minibag+) 100 ML 100 ML @ 25 mls/hr IVPB Q8HR JAROD Rx#: [id number] Other: Weight 94.665 kg Patient Weight 01/29/17 23:59 Weight 94.665 kg - General physical appearance well developed, well nourished, no distress - Eyes normal ocular movement - ENT normal mucosa, atraumatic, normocephalic - Neck Neck exam: trachea midline - Respiratory normal respiratory effort, clear to auscultation - Cardiovascular Cardiovascular exam: Present: RRR - Abdomen Abdomen: Present: bowel sounds present, soft, tender Abdominal Tenderness: RLQ - Neurologic CN 2-12 grossly intact - Musculoskeletal normal gait, normal posture - Psychiatric oriented to time, oriented to person, oriented to place, speech is normal, memory intact - Labs 01/30/17 04:03 01/30/17 04:03 Diabetes panel 01/29/17 Range/Units 03:33 Sodium 138 (136-145) mEq/L Potassium 4.1 (3.5-4.5) mEq/L Chloride 108 (98-109) mEq/L Carbon Dioxide 24 (19-29) mEq/L BUN 8 (7-20) mg/dL Creatinine 0.83 (0.57-1.11) mg/dL Glucose 117 H (70-99) mg/dL Calcium 9.0 (8.6-10.8) mg/dL Calcium panel 01/29/17 Range/Units 03:33 Calcium 9.0 (8.6-10.8) mg/dL Pituitary panel 01/29/17 Range/Units 03:33 Sodium 138 (136-145) mEq/L Potassium 4.1 (3.5-4.5) mEq/L Chloride 108 (98-109) mEq/L Carbon Dioxide 24 (19-29) mEq/L BUN 8 (7-20) mg/dL Creatinine 0.83 (0.57-1.11) mg/dL Glucose 117 H (70-99) mg/dL Calcium 9.0 (8.6-10.8) mg/dL Adrenal panel 01/29/17 Range/Units 03:33 Sodium 138 (136-145) mEq/L Potassium 4.1 (3.5-4.5) mEq/L Chloride 108 (98-109) mEq/L Carbon Dioxide 24 (19-29) mEq/L BUN 8 (7-20) mg/dL Creatinine 0.83 (0.57-1.11) mg/dL Glucose 117 H (70-99) mg/dL Calcium 9.0 (8.6-10.8) mg/dL Consult Discharge Plan - Plan Referrals: Esvin-Leah Mccray DO [Primary Care Provider] - - Attending Attestation I examined this patient and my medical decision-making was reviewed with the DIGITAL DESIGN ENGINEER/PA/Advanced Practice Nurse/Resident Physician. I agree with the documented findings, disposition and treatment plan as described except to the extent set forth below. Review of the above physical exam and assessment with the nurse practitioner present. Patient states she has an improved right lower quadrant pain. Improved with decreased pain with eating. No nausea or vomiting. Patient still has tenderness to palpation right lower quadrant. Recommend continue with IV antibiotics at this time and continue serial abdominal examination.
--- NOTE | 2017-01-29 19:44 | Internal Med Progress Note ---
Date of Encounter: 01/29/17 Time of Encounter: 10:50 - Assessment and plan (1) Colitis presumed infectious Current Visit: Yes Status: Acute Assessment and plan: Patient was seen by surgery today. They recommend 1 more day of IV therapy inpatient. Patient states that she feels significantly better. Abdomen is less tender today. She states that she has been trying to eat however she has no appetite. Her white count has remained steady at 10.9. All of her other labs are within normal limits. She denies nausea vomiting or diarrhea. Today she rates her pain 3 out of 10, which is down from a 10 out of 10 yesterday. Continue IV antibiotics, may be discharged tomorrow Monitor labs and vital signs (2) Intractable abdominal pain Current Visit: Yes Status: Acute Assessment and plan: Pain is improved today. We will continue to monitor. (3) Abdominal pain Current Visit: Yes Status: Acute Assessment and plan: Same as above. Qualifiers: Abdominal location: right lower quadrant Qualified Code(s): R10.31 - Right lower quadrant pain (4) Tobacco abuse Current Visit: Yes Status: Chronic Assessment and plan: Chronic. We will continue to encourage patient to stop smoking. - Time Spent With Patient less than 15 minutes - Subjective Interval history: Patient evaluated. She was sitting up in her bed. Patient was tearful, stating that she needs to go home because she is going to lose her job. States she has been off work since Friday. She states that she feels significantly better and her pain is better. She was seen by surgery who suggests at least one more day of inpatient IV therapy. - Constitutional Vitals: Temp Pulse Resp BP Pulse Ox 98.1 F 66 15 103/66 100 01/29/17 15:55 01/29/17 15:55 01/29/17 15:55 01/29/17 15:55 01/29/17 15:55 General appearance: Present: cooperative, mild distress (2/2 pain), A&O X 3, pleasant, answers questions appropriately - Head Head exam: Present: normal inspection - Eye Eye exam: Present: normal appearance, conjuntiva pink - ENT ENT exam: Present: mucous membranes moist, normal exam, normal external ear exam - Respiratory Respiratory exam: Present: CTAB. Absent: respiratory distress, rhonchi, stridor , wheezes, tachypnea - GI/Abdominal GI/Abdominal exam: Present: normal bowel sounds, soft, tenderness Additional comments: Patient still has mild tenderness to her abdomen. - Extremities Exam Extremities exam: Present: warm, radial pulses palpable and symetrical. Absent : pedal edema, tenderness Internal Medicine: Result - Labs CBC & Chem 7: 01/29/17 03:33 01/29/17 03:33 Consult Discharge Plan - Plan Referrals: Able-Leah Mccray DO [Primary Care Provider] -
[2017-01-29] MEDS ORDERED: Nicotine 21 MG PATCH.TD24 TD ONE (21:15)
[2017-01-30] MEDS: *HR* HYDROmorphone (PF) 1 MG/ML SYRINGE IVP PRN ×4 (01:42→16:58)
[2017-01-30 04:49] LABS: Basophils % 0.6 %; Eosinophils # 0.1 K/mcL (0.0-0.6); Eosinophils % 1.5 %; Hematocrit 34.4 % (35.3-44.9); Hemoglobin 11.5 g/dL (11.5-15.4); Immature Granulocytes % 0.1 % (0-4); Lymphocytes # 3.1 K/mcL (0.6-4.6); Lymphocytes % 43.3 %; Mean Corpuscular HGB Conc 33.4 g/dL (31.6-35.5); Mean Corpuscular Hemoglobin 31.6 pg (28.0-33.3); Mean Corpuscular Volume 94.5 fL (83.0-100.0); Mean Platelet Volume 9.3 fL (9.4-12.4); Monocytes # 0.5 K/mcL (0.0-1.3); Monocytes % 7.2 %; Neutrophils # 3.4 K/mcL (1.6-8.9); Platelet Count 245 K/mcL (140-400); Red Blood Count 3.64 M/mcL (3.82-4.97); Red Cell Distribution Width 12.8 % (11.5-14.5); Segmented Neutrophils % 47.3 %
[2017-01-30 05:04] LABS: BUN/Creatinine Ratio 13 (6-26); Blood Urea Nitrogen 11 mg/dL (7-20); Calcium 8.8 mg/dL (8.6-10.8); Carbon Dioxide 24 mEq/L (19-29); Chloride 104 mEq/L (98-109); Glucose 93 mg/dL (70-99); Osmolality,Calculated 281 (280-300); Sodium 136 mEq/L (136-145); eGFR For African Americans > 60 (> 60); eGFR For Non-African Americans > 60 (> 60)
[2017-01-30] MEDS: *HR* Heparin 5,000 UNIT/ML VIAL SQ SCH ×2 (06:17→16:58)
[2017-01-30] MEDS: Famotidine 20 MG/2 ML VIAL IVP SCH ×2 (06:17→16:58)
[2017-01-30] MEDS: 0.9 % Sodium Chloride 1,000 ML IVC SCH ×2 (06:25→12:28)
[2017-01-30] MEDS: Nicotine 21 MG PATCH.TD24 TD SCH (08:51)
[2017-01-30] MEDS: Piperacillin/Tazobactam 3.375 GM in D5% in Water (Mini-Bag+) 100 ML IVPB SCH ×2 (08:52→15:50)
[2017-01-30] MEDS: *HR* HYDROcodone/Acet 5/325 mg TABLET PO PRN (11:42)
--- NOTE | 2017-01-30 14:36 | General Surgery Progress Note ---
Date of Encounter: 01/28/17 Time of Encounter: 14:30 - Assessment and Plan (1) Colitis presumed infectious Current Visit: Yes Status: Acute IV antibiotics Supportive care/pain control Soft diet Decrease IV fluids Stool softner Serial abdominal exams Increase activity as tolerated Will continue to follow and assess progress Subjective Patient reports: no new complaints, feels better, tolerating a regular diet, voiding w/o difficulty, flatus, bowel movement, afebrile Objective Vital Signs - Last 8 Hours Temp Pulse Resp BP Pulse Ox 01/30/17 11:18 98.1 F 85 16 105/67 97 01/30/17 07:44 97.9 F 65 14 99/63 97 Intake and Output 01/29/17 01/30/17 01/30/17 23:59 07:59 15:59 Intake Total 500 / 500 1900 / 1900 240 / 240 Output Total 600 / 600 540 / 540 Balance -100 / -100 1360 / 1360 240 / 240 Intake: IV Fluids 100 / 100 1100 / 1100 0.9 % Sodium Chloride 1, 1000 / 1000 000 ML @ 75 mls/hr IVC . [id number] JAROD Rx#: [id number] Zosyn 3.375 GM In 100 / 100 100 / 100 Dextrose 5% (Minibag+) 100 ML 100 ML @ 25 mls/hr IVPB Q8HR JAROD Rx#: [id number] Oral 400 / 400 800 / 800 240 / 240 Output: Urine 600 / 600 540 / 540 Other: Meal Lunch Percent of Meal Consumed 15% Stool Size Moderate Stool Consistency formed Stool Characteristics Normal for Patient Stool Color Brown Weight 95.708 kg Patient Weight 01/30/17 23:59 Weight 95.708 kg - General physical appearance well developed, well nourished, no distress - Eyes normal ocular movement - ENT normal mucosa, atraumatic, normocephalic - Neck Neck exam: trachea midline - Respiratory normal expansion, normal respiratory effort, clear to auscultation - Cardiovascular Cardiovascular exam: Present: RRR - Abdomen Abdomen: Present: bowel sounds present, soft, tender (minimal) Abdominal Tenderness: RLQ - Neurologic CN 2-12 grossly intact - Musculoskeletal normal gait, normal posture - Psychiatric oriented to time, oriented to person, oriented to place, speech is normal, memory intact - Labs 01/30/17 04:03 01/30/17 04:03 Diabetes panel 01/30/17 Range/Units 04:03 Sodium 136 (136-145) mEq/L Potassium 4.0 (3.5-4.5) mEq/L Chloride 104 (98-109) mEq/L Carbon Dioxide 24 (19-29) mEq/L BUN 11 (7-20) mg/dL Creatinine 0.82 (0.57-1.11) mg/dL Glucose 93 (70-99) mg/dL Calcium 8.8 (8.6-10.8) mg/dL Calcium panel 01/30/17 Range/Units 04:03 Calcium 8.8 (8.6-10.8) mg/dL Pituitary panel 01/30/17 Range/Units 04:03 Sodium 136 (136-145) mEq/L Potassium 4.0 (3.5-4.5) mEq/L Chloride 104 (98-109) mEq/L Carbon Dioxide 24 (19-29) mEq/L BUN 11 (7-20) mg/dL Creatinine 0.82 (0.57-1.11) mg/dL Glucose 93 (70-99) mg/dL Calcium 8.8 (8.6-10.8) mg/dL Adrenal panel 01/30/17 Range/Units 04:03 Sodium 136 (136-145) mEq/L Potassium 4.0 (3.5-4.5) mEq/L Chloride 104 (98-109) mEq/L Carbon Dioxide 24 (19-29) mEq/L BUN 11 (7-20) mg/dL Creatinine 0.82 (0.57-1.11) mg/dL Glucose 93 (70-99) mg/dL Calcium 8.8 (8.6-10.8) mg/dL Consult Discharge Plan - Plan Instructions: Amoxicillin (By mouth) Additional Instructions: May return to work 02/03/17 without restrictions Excuse pt from work from 01/26/17-02/03/17 Referrals: Esvin-Leah Mccray DO [Primary Care Provider] - (Please call your primary care provider and schedule a follow up appointment in 5-7 days.) Prescriptions: Amoxicillin/Clavulanate [Augmentin] 875 mg PO BIDWM #20 tablet - Attending Attestation I examined this patient and my medical decision-making was reviewed with the HOME HEALTH OUTREACH COORDINATOR/PA/Advanced Practice Nurse/Resident Physician. I agree with the documented findings, disposition and treatment plan as described except to the extent set forth below. Patient to be discharged home today. Will follow up as an outpatient as needed.
[2017-01-30 15:00] VITALS: BP 109/66
--- NOTE | 2017-01-30 17:29 | Discharge Summary ---
Date of Encounter: 01/28/17 Time of Encounter: 14:00 - Discharge Diagnosis (1) Colitis presumed infectious Priority: Primary Status: Acute Comments: Patient appears to be much better today, abdomen is much less tender, patient has been cleared to go home by surgery. She will be sent home on Augmentin 875 mg by mouth for 10 days. She also is going home excuse to be off for 1 week. Her white count has returned to normal limits and all other labs are also within normal limits. Patient will follow-up with surgery outpatient 2-3 weeks. (2) Intractable abdominal pain Priority: Secondary Status: Acute Comments: Patient states the pain is much better today. She denies nausea and vomiting. Rates pain 4/10 at this time. She did get another dose of pain medication prior to discharge. She already has a prescription for [place] that she may continue at home.. Her abdomen is soft, no masses, slightly tender in right lower quadrant, bowel sounds 4. (3) Tobacco abuse Priority: Secondary Status: Chronic Comments: Patient states that she is not ready to stop smoking at this time. - Discharge Medications Prescriptions: Amoxicillin/Clavulanate [Augmentin] 875 mg PO BIDWM #20 tablet Home Medications: HYDROcodone/Acet 10/325 mg [[place] 10-325 mg] 1 tab PO Q6HR PRN #12 tab 01/24/17 [Rx] Gabapentin [Neurontin] 600 mg PO TID 01/26/17 [History] Amoxicillin/Clavulanate [Augmentin] 875 mg PO BIDWM #20 tablet 01/30/17 [Rx] Allergies/Adverse Reactions: Allergies Cinnamon Allergy (Verified 01/27/17 07:13) Swelling of Lip/Tongue/Throat Date of admission: 01/29/17 13:48 Primary care physician: Leah Mcallister Discharging clinician: Juliana Jacobsen Anticipated date of discharge: 01/30/17 - Patient Status Disposition: Home, Self-Care Condition: Good Functional capacity at discharge: independent ambulation Overall status at discharge: patient is progressing back to baseline - Discharge Instructions Follow Up With: Esvin-Leah Mccray DO [Primary Care Provider] - Forms: ED Satisfaction Letter, Work/School Release Additional Instructions: May return to work 02/03/17 without restrictions Excuse pt from work from 01/26/17-02/03/17 - Diet and Activity Activity: resume usual activities as tolerated Diet: advance to your usual diet Hospital course: Ms. Castellon is a 26 year old female who is admitted to the hospital on 328 from the emergency department with complaint of right lower quadrant pain. CT of abdomen did not show appendicitis. CT showed focal inflammation of the pericolonic fat posterior to the cecum in the region of the appendix. Findings may be related to focal colitis or possibly a diverticulitis. Patient was admitted to the hospitalist service for further management. She was followed by surgery throughout her stay, and treated with IV antibiotics. Surgery signed off today and patient will be sent home on Augmentin 875 for 10 days. Patient rates pain 4 out of 10 today and did receive one last dose of pain medication prior to discharge. Patient has [place] at home already that she may continue when she gets home. She is continue other home medications. She will be off work until February 04. She was admitted initially with leukocytosis, however quickly resolved and her white count is back to normal now. She did eat some full liquids today on her tray without difficulty. All other labs are within normal limits. Patient is stable for discharge. She has a ride here with her. Time spent discussing smoking cessation with patient: 3 to 10 minutes - Time Spent with Patient Total time spent providing and/or coordinating discharge services: Less than 30 minutes - Constitutional Vitals: Temp Pulse Resp BP Pulse Ox 98.1 F 85 14 109/66 94 L 01/30/17 15:00 01/30/17 15:00 01/30/17 15:00 01/30/17 15:00 01/30/17 15:00 General appearance: Present: cooperative, mild distress (2/2 pain), A&O X 3, pleasant, answers questions appropriately - Neck Neck exam general surgery: Present: normal inspection. Absent: lymphadenopathy , tenderness - Cardiovascular Cardiovascular exam: Present: RRR, +S1, +S2. Absent: diastolic murmur, systolic murmur - GI/Abdominal GI/Abdominal exam: Present: normal bowel sounds, tenderness. Absent: hepatomegaly, rebound - Neurological Exam Neurological exam: Present: alert, oriented X3, strengths equal and symetr throughout. Absent: no focal deficits
== END 2017-01-30 18:39 | disposition home or self-care (01) | DRG 392 ==
LOC: EMEROO 15:21 → 3BNU 15:21
PROVIDERS: ADMIT Internal Medicine; ATTEND Registered Nurse

== ENCOUNTER 2017-09-06 19:27 | Inpatient (IN) ==
[2017-09-06] MEDS ORDERED: Ondansetron 4 MG/2 ML VIAL IVP ONE (19:46)
--- NOTE | 2017-09-06 19:46 | Emergency Department Note ---
Disposition Clinical Impression: Colitis, Nausea Disposition: Admitted As Inpatient Condition: Good General Adult HPI - General Chief complaint: ED Abdominal Pain Stated complaint: rt side abdominal pain Time Seen by Provider: 09/06/17 19:33 Source: patient Limitations: no limitations - History of Present Illness Pain Scale: 8 - Related Data Home Medications Medication Instructions Recorded Confirmed Gabapentin [Neurontin] 600 mg PO TID 01/26/17 09/06/17 Allergies Allergy/AdvReac Type Severity Reaction Status Date / Time cinnamon [Cinnamon] Allergy Swelling Verified 09/06/17 19:28 of Lip/Tongue/Throat Past Medical History - Past Medical History Medical history: Reports: hepatitis, other Psychiatric history: Reports: anxiety, bipolar, depression INSOLE STIFFENER history: Reports: no INSOLE STIFFENER history - Social History Smoking Status: Current every day smoker Smokeless Tobacco Status: No Alcohol use: Reports: none Drug use: Reports: marijuana, other Physical Exam - General Limitations: no limitations General appearance: alert Course Vital Signs Temperature 98.2 F 09/06/17 19:28 Pulse Rate 126 09/06/17 19:28 Respiratory Rate 16 09/06/17 19:28 Blood Pressure 141/73 09/06/17 19:28 O2 Sat by Pulse Oximetry 99 09/06/17 19:28 Temperature 97.7 F 09/07/17 06:30 Pulse Rate 76 09/07/17 06:30 Respiratory Rate 18 09/07/17 06:30 Blood Pressure 112/70 09/07/17 06:30 O2 Sat by Pulse Oximetry 98 09/07/17 08:30 Oxygen Delivery Oxygen Delivery Room Air Medical Decision Making - Lab Data Result diagrams: 09/07/17 06:47 09/07/17 06:47 Lab Results 09/06/17 09/06/17 09/06/17 Range/Units 19:55 19:55 20:00 WBC (4.3-11.1) K/mcL RBC (3.82-4.97) M/mcL Hgb (11.5-15.4) g/dL Hct (35.3-44.9) % MCV (83.0-100.0) fL MCH (28.0-33.3) pg MCHC (31.6-35.5) g/dL RDW (11.5-14.5) % Plt Count (140-400) K/mcL MPV (9.4-12.4) fL Immature Gran % (0-4) % Seg Neutrophils % % Lymphocytes % % Monocytes % % Eosinophils % % Basophils % % Neutrophils # (1.6-8.9) K/mcL Lymphocytes # (0.6-4.6) K/mcL Monocytes # (0.0-1.3) K/mcL Eosinophils # (0.0-0.6) K/mcL Basophils # (0.0-0.2) K/mcL Sodium 138 (136-145) mEq/L Potassium 4.5 (3.5-4.5) mEq/L Chloride 101 (98-109) mEq/L Carbon Dioxide 23 (19-29) mEq/L BUN 12 (7-20) mg/dL Creatinine 0.83 (0.57-1.11) mg/dL Est GFR ( Amer) > 60 (> 60) Est GFR (Non-Af Amer) > 60 (> 60) BUN/Creatinine Ratio 14 (6-26) Glucose 81 (70-99) mg/dL Calculated Osmolality 285 (280-300) Calcium 10.9 H (8.6-10.8) mg/dL Total Bilirubin 0.2 (0.2-1.2) mg/dL AST 33 (5-34) Units/L ALT 30 (0-55) Units/L Alkaline Phosphatase 55 (38-126) Units/L Serum Total Protein 8.8 H (6.0-8.3) g/dL Albumin 4.5 (3.5-5.0) g/dL Globulin 4.3 H (2.4-3.5) g/dL Albumin/Globulin Ratio 1.0 L (1.1-2.2) Lipase 18 (8-78) Units/L Urine Color Yellow (Yellow) Urine Clarity Clear (Clear) Urine pH 6.0 (5.0-8.0) pH Units Ur Specific [place] 1.028 H (1.010-1.025) Urine Protein Negative (Neg-Trace) mg/dL Urine Glucose (UA) Normal (Normal) mg/dL Urine Ketones Negative (Negative) mg/dL Urine Blood Negative (Negative) Urine Nitrite Negative (Negative) Urine Bilirubin Negative (Negative) Urine Urobilinogen Normal (Normal) mg/dL Ur Leukocyte Esterase Trace H (Negative) Urine Microscopic RBC 0-3 (0-3) per hpf Urine Microscopic WBC 0-3 (0-3) per hpf Ur Squamous Epith Cells Many H (None-Few) per lpf Urine Bacteria None Seen (None-Few) per hpf Hyaline Casts None Seen (None-Few) per lpf Ur Culture Indicated? YES A (NO) Urine Test Negative (Negative) Specimen Rejected 09/06/17 09/06/17 Range/Units 20:00 20:19 WBC 14.1 H (4.3-11.1) K/mcL RBC 4.66 (3.82-4.97) M/mcL Hgb 14.6 (11.5-15.4) g/dL Hct 41.9 (35.3-44.9) % MCV 89.9 (83.0-100.0) fL MCH 31.3 (28.0-33.3) pg MCHC 34.8 (31.6-35.5) g/dL RDW 12.8 (11.5-14.5) % Plt Count 273 (140-400) K/mcL MPV 8.7 L (9.4-12.4) fL Immature Gran % 0.3 (0-4) % Seg Neutrophils % 69.3 % Lymphocytes % 23.8 % Monocytes % 5.8 % Eosinophils % 0.6 % Basophils % 0.2 % Neutrophils # 9.8 H (1.6-8.9) K/mcL Lymphocytes # 3.3 (0.6-4.6) K/mcL Monocytes # 0.8 (0.0-1.3) K/mcL Eosinophils # 0.1 (0.0-0.6) K/mcL Basophils # 0.0 (0.0-0.2) K/mcL Sodium (136-145) mEq/L Potassium (3.5-4.5) mEq/L Chloride (98-109) mEq/L Carbon Dioxide (19-29) mEq/L BUN (7-20) mg/dL Creatinine (0.57-1.11) mg/dL Est GFR ( Amer) (> 60) Est GFR (Non-Af Amer) (> 60) BUN/Creatinine Ratio (6-26) Glucose (70-99) mg/dL Calculated Osmolality (280-300) Calcium (8.6-10.8) mg/dL Total Bilirubin (0.2-1.2) mg/dL AST (5-34) Units/L ALT (0-55) Units/L Alkaline Phosphatase (38-126) Units/L Serum Total Protein (6.0-8.3) g/dL Albumin (3.5-5.0) g/dL Globulin (2.4-3.5) g/dL Albumin/Globulin Ratio (1.1-2.2) Lipase (8-78) Units/L Urine Color (Yellow) Urine Clarity (Clear) Urine pH (5.0-8.0) pH Units Ur Specific [place] (1.010-1.025) Urine Protein (Neg-Trace) mg/dL Urine Glucose (UA) (Normal) mg/dL Urine Ketones (Negative) mg/dL Urine Blood (Negative) Urine Nitrite (Negative) Urine Bilirubin (Negative) Urine Urobilinogen (Normal) mg/dL Ur Leukocyte Esterase (Negative) Urine Microscopic RBC (0-3) per hpf Urine Microscopic WBC (0-3) per hpf Ur Squamous Epith Cells (None-Few) per lpf Urine Bacteria (None-Few) per hpf Hyaline Casts (None-Few) per lpf Ur Culture Indicated? (NO) Urine Test (Negative) Specimen Rejected Clotted Attestation Statement - Attestation Attestation: I examined this patient and my medical decision-making was reviewed with the Resident Physician. I agree with the documented findings, disposition and treatment plan as described except to the extent set forth below. [id number] time provided Patient complains of right lower abdominal pain that woke her up from sleep last night. She is tachycardic and appears uncomfortable on exam. She states she has experienced similar discomfort in the past due to both colitis and ovarian cysts
[2017-09-06 20:09] LABS: Bilirubin,Urine Negative (Negative); Blood,Urine Negative (Negative); Clarity,Urine Clear (Clear); Color,Urine Yellow (Yellow); Glucose,Urine (UA) Normal (Normal); Ketones,Urine Negative (Negative); Leukocyte Esterase,Urine Trace (Negative); Nitrite,Urine Negative (Negative); Protein,Urine Negative (Neg-Trace); Specific Gravity,Urine 1.028 (1.010-1.025); Urobilinogen,Urine Normal (Normal)
[2017-09-06 20:10] LABS: Bacteria,Urine None Seen per hpf (None-Few); Hyaline Casts,Urine None Seen per lpf (None-Few); RBC,Urine 0-3 per hpf (0-3); Squamous Epithelial Cell,Urine Many per lpf (None-Few); WBC,Urine 0-3 per hpf (0-3)
[2017-09-06 20:20] LABS: Alanine Aminotransferase 30 Units/L (0-55); Albumin 4.5 g/dL (3.5-5.0); Alkaline Phosphatase 55 Units/L (38-126); BUN/Creatinine Ratio 14 (6-26); Bilirubin,Total 0.2 mg/dL (0.2-1.2); Blood Urea Nitrogen 12 mg/dL (7-20); Calcium 10.9 mg/dL (8.6-10.8); Carbon Dioxide 23 mEq/L (19-29); Chloride 101 mEq/L (98-109); Globulin 4.3 g/dL (2.4-3.5); Glucose 81 mg/dL (70-99); Lipase 18 Units/L (8-78); Osmolality,Calculated 285 (280-300); Potassium 4.5 mEq/L (3.5-4.5); Sodium 138 mEq/L (136-145); Total Protein 8.8 g/dL (6.0-8.3); eGFR For African Americans > 60 (> 60); eGFR For Non-African Americans > 60 (> 60)
[2017-09-06 20:24] LABS: Basophils % 0.2 %; Eosinophils # 0.1 K/mcL (0.0-0.6); Eosinophils % 0.6 %; Hematocrit 41.9 % (35.3-44.9); Hemoglobin 14.6 g/dL (11.5-15.4); Immature Granulocytes % 0.3 % (0-4); Lymphocytes # 3.3 K/mcL (0.6-4.6); Lymphocytes % 23.8 %; Mean Corpuscular HGB Conc 34.8 g/dL (31.6-35.5); Mean Corpuscular Hemoglobin 31.3 pg (28.0-33.3); Mean Corpuscular Volume 89.9 fL (83.0-100.0); Mean Platelet Volume 8.7 fL (9.4-12.4); Monocytes # 0.8 K/mcL (0.0-1.3); Monocytes % 5.8 %; Neutrophils # 9.8 K/mcL (1.6-8.9); Platelet Count 273 K/mcL (140-400); Red Blood Count 4.66 M/mcL (3.82-4.97); Red Cell Distribution Width 12.8 % (11.5-14.5); Segmented Neutrophils % 69.3 %
[2017-09-06 20:27] LABS: Aspartate Amino Transferase 33 Units/L (5-34)
--- NOTE | 2017-09-06 20:53 | Emergency Department Note ---
Disposition Clinical Impression: Colitis, Nausea Disposition: Admitted As Inpatient Condition: Good Referrals: NONE,PCP [Non-Partnered Physician] - Forms: ED Satisfaction Letter, Work/School Release Time of Disposition: 21:32 General Adult HPI - General Chief complaint: ED Abdominal Pain Stated complaint: rt side abdominal pain Time Seen by Provider: 09/06/17 19:33 Source: patient Limitations: no limitations Nursing Notes Reviewed: Yes Vital Signs Reviewed: Yes - History of Present Illness HPI Narrative: 27-year-old female presenting to the emergency department complaining of right lower quadrant pain. Patient states approximately 3 AM the pain woke her up from her sleep. She is not feeling nauseous but had no vomiting. States she had one bowel movement today which was normal for her. Denies any abdominal surgeries. She is a significant past medical history of previous ovarian cysts and colitis. She states the pain feels like "a mixture of the ovarian cyst and colitis". She did not try anything at home for this pain. She denies melena or hematochezia. She denies any chest pain, shortness of breath, dizziness. Pain does not radiate and feels like a stabbing and burning pain. Patient denies any urinary symptoms. Patient states her last menstrual period was approximately one week ago. Patient denies any new sexual partners, vaginal discharge or concern for STDs. Pain Scale: 8 - Related Data Home Medications Medication Instructions Recorded Confirmed Gabapentin [Neurontin] 600 mg PO TID 01/26/17 01/27/17 Previous Rx's Medication Instructions Recorded HYDROcodone/Acet 10/325 mg [[place] 1 tab PO Q6HR PRN #12 tab 01/24/17 10-325 mg] Amoxicillin/Clavulanate [Augmentin] 875 mg PO BIDWM #20 tablet 01/30/17 Amoxicillin 500 mg PO DAILY #7 tablet 02/23/17 Amoxicillin [Amoxil] 500 mg PO TID #21 tab.chew 02/23/17 Cyclobenzaprine [Flexeril] 10 mg PO TID PRN #15 tablet 05/28/17 Sulfamethoxazole/Trimeth DS 1 each PO BID 7 Days tablet 05/28/17 [Bactrim DS] Allergies Allergy/AdvReac Type Severity Reaction Status Date / Time cinnamon [Cinnamon] Allergy Swelling Verified 09/06/17 19:28 of Lip/Tongue/Throat All systems ED: reviewed and negative except as stated. Constitutional: Denies: fever, chills Eyes: Reports: as per HPI ENT ED: Reports: as per HPI Cardiovascular: Denies: chest pain, palpitations, dyspnea on exertion Respiratory: Denies: cough, dyspnea, wheezes Gastrointestinal: Reports: abdominal pain, nausea. Denies: vomiting Genitourinary: Reports: as per HPI Musculoskeletal: Reports: as per HPI Integumentary: Denies: rash, abrasion, lesions Neurological: Reports: as per HPI Psychiatric: Reports: as per HPI Endocrine: Reports: as per HPI Hematological/Lymphatic: Reports: as per HPI Allergic/Immunologic: Reports: as per HPI Past Medical History - Past Medical History Attestation: Yes The following information was validated with the patient. Medical history: Reports: hepatitis, other Psychiatric history: Reports: anxiety, bipolar, depression STONE RUBBER history: Reports: no STONE RUBBER history - Social History Smoking Status: Current every day smoker Smokeless Tobacco Status: No Alcohol use: Reports: none Drug use: Reports: marijuana, other Physical Exam - General Limitations: no limitations General appearance: alert, in no apparent distress - Head Head exam: atraumatic, normocephalic, normal inspection - Eye Eye exam: Present: normal appearance. Absent: scleral icterus, conjunctival injection - ENT ENT exam: normal exam, mucous membranes moist - Chest Chest inspection: Present: normal inspection, symmetric chest wall rise. Absent : tenderness, rash - Respiratory Respiratory exam: Present: normal lung sounds bilaterally. Absent: respiratory distress, wheezes - Cardiovascular Cardiovascular exam: Present: normal rhythm, tachycardia, normal heart sounds - Abdominal Exam Abdominal exam: Present: soft, tenderness, normal bowel sounds, tenderness at [place]'s Point. Absent: distention, guarding, rebound, rigidity, organomegaly , Jaime's sign, Rovsing's sign, ascites Abdominal tenderness: Present: RLQ, moderate - Extremities Exam Extremities exam: Present: normal inspection, full ROM - Neurological Exam Neurological exam: Present: alert, oriented X3 - Psychiatric Psychiatric exam: Present: normal affect, normal mood - Skin Skin exam: Present: warm, intact Course Course Narrative: 27-year-old female presenting to the emergency department complaining of right lower quadrant pain. Patient is alert and oriented 3 in the room. She is tachycardic but otherwise vital signs are stable at this time. We will provide the patient with pain management and antinausea medicine. We will also obtain basic lab work and a CT of the abdomen and pelvis. Patient agrees with this plan. Disposition pending results. - Reevaluation(s) Reevaluation #1: Patient has mild increase in her white cell count at 14. CT completed showed pericecal fat inflammation most likely colitis. This was very similar to previous episode in January of this year. Patient was worked up by Dr. Fernandes and admitted previously. Patient is still extremely uncomfortable and uncontrolled pain. We will plan to admit the patient at this time. I spoke with the surgeon documentation manager Dr. Dodson who agrees to see the patient morning. She would like us to admit the patient to the hospitalist. I spoke with the hospitalist Dr. Goldstein who agrees except the patient at this time. Patient agrees with this plan. She is alert and oriented 3 in the room with stable vital signs at this time. Time: 21:31 Vital Signs Temperature 98.2 F 09/06/17 19:28 Pulse Rate 126 09/06/17 19:28 Respiratory Rate 16 09/06/17 19:28 Blood Pressure 141/73 09/06/17 19:28 O2 Sat by Pulse Oximetry 99 09/06/17 19:28 Temperature 98.2 F 09/06/17 19:28 Pulse Rate 126 09/06/17 19:28 Respiratory Rate 16 09/06/17 19:28 Blood Pressure 141/73 09/06/17 19:28 O2 Sat by Pulse Oximetry 99 09/06/17 19:28 Oxygen Delivery Oxygen Delivery Room Air Medical Decision Making - Lab Data Result diagrams: 09/06/17 20:19 09/06/17 20:00 Lab Results 09/06/17 09/06/17 09/06/17 Range/Units 19:55 19:55 20:00 WBC (4.3-11.1) K/mcL RBC (3.82-4.97) M/mcL Hgb (11.5-15.4) g/dL Hct (35.3-44.9) % MCV (83.0-100.0) fL MCH (28.0-33.3) pg MCHC (31.6-35.5) g/dL RDW (11.5-14.5) % Plt Count (140-400) K/mcL MPV (9.4-12.4) fL Immature Gran % (0-4) % Seg Neutrophils % % Lymphocytes % % Monocytes % % Eosinophils % % Basophils % % Neutrophils # (1.6-8.9) K/mcL Lymphocytes # (0.6-4.6) K/mcL Monocytes # (0.0-1.3) K/mcL Eosinophils # (0.0-0.6) K/mcL Basophils # (0.0-0.2) K/mcL Sodium 138 (136-145) mEq/L Potassium 4.5 (3.5-4.5) mEq/L Chloride 101 (98-109) mEq/L Carbon Dioxide 23 (19-29) mEq/L BUN 12 (7-20) mg/dL Creatinine 0.83 (0.57-1.11) mg/dL Est GFR ( Amer) > 60 (> 60) Est GFR (Non-Af Amer) > 60 (> 60) BUN/Creatinine Ratio 14 (6-26) Glucose 81 (70-99) mg/dL Calculated Osmolality 285 (280-300) Calcium 10.9 H (8.6-10.8) mg/dL Total Bilirubin 0.2 (0.2-1.2) mg/dL AST 33 (5-34) Units/L ALT 30 (0-55) Units/L Alkaline Phosphatase 55 (38-126) Units/L Serum Total Protein 8.8 H (6.0-8.3) g/dL Albumin 4.5 (3.5-5.0) g/dL Globulin 4.3 H (2.4-3.5) g/dL Albumin/Globulin Ratio 1.0 L (1.1-2.2) Lipase 18 (8-78) Units/L Urine Color Yellow (Yellow) Urine Clarity Clear (Clear) Urine pH 6.0 (5.0-8.0) pH Units Ur Specific [place] 1.028 H (1.010-1.025) Urine Protein Negative (Neg-Trace) mg/dL Urine Glucose (UA) Normal (Normal) mg/dL Urine Ketones Negative (Negative) mg/dL Urine Blood Negative (Negative) Urine Nitrite Negative (Negative) Urine Bilirubin Negative (Negative) Urine Urobilinogen Normal (Normal) mg/dL Ur Leukocyte Esterase Trace H (Negative) Urine Microscopic RBC 0-3 (0-3) per hpf Urine Microscopic WBC 0-3 (0-3) per hpf Ur Squamous Epith Cells Many H (None-Few) per lpf Urine Bacteria None Seen (None-Few) per hpf Hyaline Casts None Seen (None-Few) per lpf Ur Culture Indicated? YES A (NO) Urine Test Negative (Negative) Specimen Rejected 09/06/17 09/06/17 Range/Units 20:00 20:19 WBC 14.1 H (4.3-11.1) K/mcL RBC 4.66 (3.82-4.97) M/mcL Hgb 14.6 (11.5-15.4) g/dL Hct 41.9 (35.3-44.9) % MCV 89.9 (83.0-100.0) fL MCH 31.3 (28.0-33.3) pg MCHC 34.8 (31.6-35.5) g/dL RDW 12.8 (11.5-14.5) % Plt Count 273 (140-400) K/mcL MPV 8.7 L (9.4-12.4) fL Immature Gran % 0.3 (0-4) % Seg Neutrophils % 69.3 % Lymphocytes % 23.8 % Monocytes % 5.8 % Eosinophils % 0.6 % Basophils % 0.2 % Neutrophils # 9.8 H (1.6-8.9) K/mcL Lymphocytes # 3.3 (0.6-4.6) K/mcL Monocytes # 0.8 (0.0-1.3) K/mcL Eosinophils # 0.1 (0.0-0.6) K/mcL Basophils # 0.0 (0.0-0.2) K/mcL Sodium (136-145) mEq/L Potassium (3.5-4.5) mEq/L Chloride (98-109) mEq/L Carbon Dioxide (19-29) mEq/L BUN (7-20) mg/dL Creatinine (0.57-1.11) mg/dL Est GFR ( Amer) (> 60) Est GFR (Non-Af Amer) (> 60) BUN/Creatinine Ratio (6-26) Glucose (70-99) mg/dL Calculated Osmolality (280-300) Calcium (8.6-10.8) mg/dL Total Bilirubin (0.2-1.2) mg/dL AST (5-34) Units/L ALT (0-55) Units/L Alkaline Phosphatase (38-126) Units/L Serum Total Protein (6.0-8.3) g/dL Albumin (3.5-5.0) g/dL Globulin (2.4-3.5) g/dL Albumin/Globulin Ratio (1.1-2.2) Lipase (8-78) Units/L Urine Color (Yellow) Urine Clarity (Clear) Urine pH (5.0-8.0) pH Units Ur Specific [place] (1.010-1.025) Urine Protein (Neg-Trace) mg/dL Urine Glucose (UA) (Normal) mg/dL Urine Ketones (Negative) mg/dL Urine Blood (Negative) Urine Nitrite (Negative) Urine Bilirubin (Negative) Urine Urobilinogen (Normal) mg/dL Ur Leukocyte Esterase (Negative) Urine Microscopic RBC (0-3) per hpf Urine Microscopic WBC (0-3) per hpf Ur Squamous Epith Cells (None-Few) per lpf Urine Bacteria (None-Few) per hpf Hyaline Casts (None-Few) per lpf Ur Culture Indicated? (NO) Urine Test (Negative) Specimen Rejected Clotted
[2017-09-06] MEDS ORDERED: MetroNIDAZOLE 500 MG/100 ML 500 MG/100 ML BAG IVPB ONE (21:14)
[2017-09-06] MEDS ORDERED: *HR* Morphine 2 MG/ML SYRINGE IVP ONE (21:14)
[2017-09-06] MEDS ORDERED: *HR* Morphine 2 MG/ML SYRINGE IVP PRN ×2 (21:49)
[2017-09-06] MEDS ORDERED: Acetaminophen 325 MG TABLET PO PRN (21:50)
[2017-09-06] MEDS ORDERED: Naloxone 0.4 MG/ML INJ IVP PRN (21:50)
--- NOTE | 2017-09-06 21:55 | Internal Med History&Physical ---
Date of Encounter: 09/06/17 Time of Encounter: 21:53 Assessment and Plan (1) Sepsis Current visit: Yes Status: Acute Intractable abdominal pain with sepsis secondary to right colon colitis, possibly infectious Continue ciprofloxacin and Flagyl IV, nothing by mouth, IV fluids and morphine for pain Will be follow-up by surgery Protonix IV for GI prophylaxis and subcutaneous heparin for DVT prophylaxis. The patient will be admitted as inpatient, expected stay more than 2 midnights. Full code. Time spent on this admission 40 minutes Qualifiers: Sepsis type: sepsis due to unspecified organism Qualified Code(s): A41.9 - Sepsis, unspecified organism (2) Intractable abdominal pain Current visit: No Status: Acute (3) Tobacco abuse Current visit: No Status: Chronic Smoking cessation counseling, nicotine patch (4) Colitis Current visit: Yes Status: Acute (5) Hepatitis C Current visit: Yes Status: Acute To be followed as outpatient Qualifiers: Viral hepatitis chronicity: unspecified Hepatic coma status: without hepatic coma Qualified Code(s): B19.20 - Unspecified viral hepatitis C without hepatic coma Internal Medicine - H&P: HPI Chief complaint: Abdominal pain Admitted From: Emergency Dept History of present illness: Ms. Castellon is a 27 year old female with a past medical history of hepatitis C , tobacco use, colitis who came to the emergency room complaining of severe right lower quadrant pain that started at 3 AM early today. Describes as 10 out of 10 in intensity. Non-quantified fevers heart rate is 126 and white blood cell count is 14.1. She had a prior episode at the beginning of his year in January where she was treated by Dr. Fernandes as colitis. CT scan of the abdomen shows inflammation of the pericecal fat just like in January of this year , colitis is suspected and appendicitis is less likely. The patient has not been able to keep anything down due to constant nausea, surgery was called and recommended admission to [facility], she is dehydrated, calcium is 10.9 blood pressure 141/73. Complaining of excruciating abdominal pain. Was given ciprofloxacin and Flagyl IV at the ER Past Med Surg Social Fam HX - Past Medical History Medical history: hepatitis (hepatitis C), other (Remote history of IV drug abuse 7 years ago, tobacco use, anxiety, bipolar, ovarian cysts, colitis, peridental abscess) Psychiatric history: anxiety, bipolar, depression - Past Surgical History Surgical History: no surgical history - Social History Smoking Status: Current every day smoker Packs per day: Half pack per day Smokeless Tobacco Status: No Alcohol use: none Drug use: marijuana, IV Drug Use (Remote history of IV drug abuse up until 7 years ago), other - Family History Maternal Grandfather Hx Family Cancer: Yes (skin) Hx Family Endocrine Disorder: Yes (DM) - Additional Family History Additional family history: Denies family history Internal Medicine - H&P: Meds HYDROcodone/Acet 10/325 mg [[place] 10-325 mg] 1 tab PO Q6HR PRN #12 tab 01/24/17 [Rx] Gabapentin [Neurontin] 600 mg PO TID 01/26/17 [History] Amoxicillin/Clavulanate [Augmentin] 875 mg PO BIDWM #20 tablet 01/30/17 [Rx] Amoxicillin 500 mg PO DAILY #7 tablet 02/23/17 [Rx] Amoxicillin [Amoxil] 500 mg PO TID #21 tab.chew 02/23/17 [Rx] Cyclobenzaprine [Flexeril] 10 mg PO TID PRN #15 tablet 05/28/17 [Rx] Sulfamethoxazole/Trimeth DS [Bactrim DS] 1 each PO BID 7 Days tablet 05/28/17 [ Rx] 3 Allergy/AdvReac Type Severity Reaction Status Date / Time cinnamon [Cinnamon] Allergy Swelling Verified 09/06/17 19:28 of Lip/Tongue/Throat All Systems PM: A 10-system review of systems was performed and is negative for pertinent findings except as documented above in the HPI. Review of systems: Denies chest pain or shortness of breath, other systems out of the 10 review were negative except for some diarrhea watery with no blood - Constitutional Vitals: Temp Pulse Resp BP Pulse Ox 98.2 F 126 16 141/73 99 09/06/17 19:28 09/06/17 19:28 09/06/17 19:28 09/06/17 19:28 09/06/17 19:28 General appearance: Present: A&O X 3 Exam: Dehydrated, right lower quadrant tenderness, positive rebound - Head Head exam: Present: atraumatic, normocephalic - Eye Eye exam: Present: PERRL, conjuntiva pink, sclera anicteric Pupils: Present: PERRL - Neck Neck exam general surgery: Present: supple, trachea midline. Absent: lymphadenopathy - Respiratory Respiratory exam: Present: CTAB. Absent: accessory muscle use, rales, rhonchi, wheezes - Cardiovascular Cardiovascular exam: Present: RRR, +S1, +S2. Absent: diastolic murmur, gallop, rubs, systolic murmur - GI/Abdominal GI/Abdominal exam: Present: normal bowel sounds, rebound, soft, tenderness, no peritoneal signs. Absent: distended - Extremities Exam Extremities exam: Present: warm, radial pulses palpable and symmetrical. Absent : calf tenderness, cyanotic, pedal edema - Neurological Exam Neurological exam: Present: CN II-XII intact, oriented X3, no focal deficits. Absent: pronater drift, facial droop, speech deficit - Skin Skin exam: Present: dry, intact Internal Med - H&P Results - Labs CBC & Chem 7: 09/06/17 20:19 09/06/17 20:00
[2017-09-06] MEDS: Nicotine 21 MG PATCH.TD24 TD SCH (22:53)
[2017-09-06] MEDS: Pantoprazole 40 MG VIAL IVP SCH (22:54)
[2017-09-06] MEDS: 0.9 % Sodium Chloride 1,000 ML IVC SCH (22:54)
[2017-09-06] MEDS: *HR* HYDROmorphone (PF) 1 MG/ML SYRINGE IVP PRN (23:44)
[2017-09-07] MEDS: MetroNIDAZOLE 500 MG/100 ML 500 MG/100 ML BAG IVPB SCH ×3 (00:16→16:21)
[2017-09-07] MEDS: *HR* HYDROmorphone (PF) 1 MG/ML SYRINGE IVP PRN ×8 (01:44→22:25)
[2017-09-07] MEDS: 0.9 % Sodium Chloride 1,000 ML IVC SCH ×3 (05:24→22:29)
[2017-09-07] MEDS: *HR* Heparin 5,000 UNIT/ML VIAL SQ SCH ×2 (05:24→17:32)
[2017-09-07] MEDS: Pantoprazole 40 MG VIAL IVP SCH (05:24)
[2017-09-07 07:29] LABS: Mean Corpuscular HGB Conc 34.3 g/dL (31.6-35.5); Mean Corpuscular Hemoglobin 31.7 pg (28.0-33.3); Mean Corpuscular Volume 92.3 fL (83.0-100.0); Mean Platelet Volume 9.2 fL (9.4-12.4); Platelet Count 234 K/mcL (140-400); Red Blood Count 4.01 M/mcL (3.82-4.97); Red Cell Distribution Width 12.9 % (11.5-14.5)
[2017-09-07 07:36] LABS: Hemoglobin 12.7 g/dL (11.5-15.4)
[2017-09-07 07:43] LABS: BUN/Creatinine Ratio 13 (6-26); Blood Urea Nitrogen 10 mg/dL (7-20); Carbon Dioxide 22 mEq/L (19-29); Chloride 104 mEq/L (98-109); Glucose 119 mg/dL (70-99); Osmolality,Calculated 280 (280-300); Sodium 135 mEq/L (136-145); eGFR For African Americans > 60 (> 60); eGFR For Non-African Americans > 60 (> 60)
[2017-09-07 08:04] LABS: Calcium 8.5 mg/dL (8.6-10.8)
[2017-09-07] MEDS: Nicotine 21 MG PATCH.TD24 TD SCH (08:30)
[2017-09-07] MEDS: Gabapentin 300 MG CAPSULE PO SCH ×3 (08:31→22:25)
[2017-09-07] MEDS: Ondansetron 4 MG/2 ML VIAL IVP PRN ×2 (08:38→16:40)
--- NOTE | 2017-09-07 11:27 | Internal Med Progress Note ---
Date of Encounter: 09/07/17 Time of Encounter: 09:00 - Assessment and plan (1) Intractable abdominal pain Current Visit: Yes Status: Acute Assessment and plan: Improving. Continue pain control with intravenous narcotic medications. High risk for complications due to intravenous narcotic medication use. (2) Colitis presumed infectious Current Visit: Yes Status: Acute Assessment and plan: Infectious versus inflammatory colitis. CT scan suggests colitis in similar appearance to her episode of colitis earlier this year. She did not have colonoscopy after that episode. I do recommend that she undergo colonoscopy in 4 weeks to rule out any inflammatory bowel disease. We will also check ESR and CRP. Continue current antibiotics. IV hydration. (3) Nausea Current Visit: Yes Status: Acute Assessment and plan: Improving. Continue treating with antiemetics as needed. (4) Sepsis Current Visit: Yes Status: Acute Assessment and plan: Due to acute colitis. Continue IV antibiotics. Acute sepsis is improving. Qualifiers: Sepsis type: sepsis due to unspecified organism Qualified Code(s): A41.9 - Sepsis, unspecified organism (5) Hepatitis C Current Visit: Yes Status: Chronic Assessment and plan: Follow-up with PCP and GI after discharge. Qualifiers: Viral hepatitis chronicity: chronic Hepatic coma status: without hepatic coma Qualified Code(s): B18.2 - Chronic viral hepatitis C - Subjective Interval history: Patient is awake and alert. Continues to have abdominal pain especially in the right lower quadrant. Nausea improving. Abdominal pain Responding well to pain medications. Denies any diarrhea. - Constitutional Vitals: Temp Pulse Resp BP Pulse Ox 98.1 F 64 15 104/64 96 09/07/17 10:50 09/07/17 10:50 09/07/17 10:50 09/07/17 10:50 09/07/17 10:50 General appearance: Present: cooperative, mild distress, A&O X 3, pleasant, obese, answers questions appropriately - Neck Neck exam general surgery: Present: supple, trachea midline. Absent: lymphadenopathy - Respiratory Respiratory exam: Present: CTAB. Absent: accessory muscle use, rales, rhonchi, wheezes - Cardiovascular Cardiovascular exam: Present: RRR, +S1, +S2. Absent: diastolic murmur, gallop, rubs, systolic murmur - GI/Abdominal GI/Abdominal exam: Present: normal bowel sounds, soft, tenderness (Right lower quadrant), no peritoneal signs. Absent: distended - Extremities Exam Extremities exam: Present: warm, radial pulses palpable and symmetrical. Absent : calf tenderness, cyanotic, pedal edema - Neurological Exam Neurological exam: Present: CN II-XII intact, oriented X3, no focal deficits. Absent: facial droop, speech deficit Internal Medicine: Result - Labs CBC & Chem 7: 09/07/17 06:47 09/07/17 06:47 Labs: Short CBC 09/07/17 Range/Units 06:47 WBC 8.7 (4.3-11.1) K/mcL Hgb 12.7 D (11.5-15.4) g/dL Hct 37.0 (35.3-44.9) % Plt Count 234 (140-400) K/mcL [facility] 09/07/17 06:47 Sodium 135 L Potassium 4.0 Chloride 104 Carbon Dioxide 22 BUN 10 Creatinine 0.76 Glucose 119 H Calcium 8.5 L D Consult Discharge Plan - Plan Referrals: Able-Leah Mccray DO [Primary Care Provider] -
--- NOTE | 2017-09-07 14:07 | General Surgery Consult Note ---
Date of Encounter: 09/07/17 Time of Encounter: 09:45 Assessment and Plan (1) Typhlitis Current Visit: Yes Status: Acute discussed CT results with patient, she has inflammation of cecum (typhlitis) npo ok ice chips prn pain control continue Abx discussed with patient she will need followup for colonoscopy as outpatient after this episode resolves, she expressed understanding (2) Hepatitis C Current Visit: Yes Status: Chronic will check quant and genotype Qualifiers: Viral hepatitis chronicity: chronic Hepatic coma status: without hepatic coma Qualified Code(s): B18.2 - Chronic viral hepatitis C History of Present Illness Consult date: 09/07/17 Reason for consult: abdominal pain History of present illness: Patient is a 27-year-old female who comes in with pain yesterday morning which woke her from sleep. The pain is in the right lower quadrant and feels like " ". She has nausea but no vomiting. She denies any fever chills or night sweats. The pain does not radiate. She had a similar episode 8 months ago and was admitted to the hospital for a week for colitis of the cecum. She did not follow up with anyone for colonoscopy after that visit. Patient denies a family history of Crohn's or ulcerative colitis Past Med Surg Social Fam HX - Past Medical History Source: patient Medical history: hepatitis (Hepatitis C), other Psychiatric history: anxiety, bipolar, depression - Past Surgical History Surgical History: no surgical history - Social History Smoking Status: Current every day smoker Packs per day: Half pack per day Smokeless Tobacco Status: No Alcohol use: none Drug use: marijuana, other - Family History Maternal Grandfather Hx Family Cancer: Yes (skin) Hx Family Endocrine Disorder: Yes (DM) Medications and Allergies Gabapentin [Neurontin] 600 mg PO TID 01/26/17 [History] 3 Allergy/AdvReac Type Severity Reaction Status Date / Time cinnamon [Cinnamon] Allergy Swelling Verified 09/06/17 19:28 of Lip/Tongue/Throat Review of Systems All systems PM: reviewed and no additional remarkable complaints except as stated All systems PM: A 10-system review of systems was performed and is negative for pertinent findings except as documented above in the HPI. General Surgery Exam Initial Vital Signs Temp Pulse Resp BP Pulse Ox 98.2 F 126 16 141/73 99 09/06/17 19:28 09/06/17 19:28 09/06/17 19:28 09/06/17 19:28 09/06/17 19:28 - General physical appearance well developed, well nourished, no distress - Eyes PERRL, normal ocular movement - ENT normal mucosa, normocephalic - Neck trachea midline - Respiratory normal expansion, clear to auscultation - Cardiovascular Cardiovascular exam: Present: RRR - Abdomen Abdomen general surgery: Present: bowel sounds present, soft, tender. Absent: distended, guarding, rebound Abdominal Tenderness: Present: RLQ - Integumentary Integumentary general surgery: Present: warm and dry, no abnormal pigmentation - Neurologic Present: CN 2-12 grossly intact - Musculoskeletal Present: normal posture - Psychiatric Psychiatric general surgery: Present: A&Ox3, speech is normal Exam Initial Vital Signs Temp Pulse Resp BP Pulse Ox 98.2 F 126 16 141/73 99 09/06/17 19:28 09/06/17 19:28 09/06/17 19:28 09/06/17 19:28 09/06/17 19:28 Results - Labs 09/07/17 06:47 09/07/17 06:47 Abnormal lab results MPV 9.2 fL (9.4-12.4) L 09/07/17 06:47 Neutrophils # 9.8 K/mcL (1.6-8.9) H 09/06/17 20:19 Sodium 135 mEq/L (136-145) L 09/07/17 06:47 Glucose 119 mg/dL (70-99) H 09/07/17 06:47 Calcium 8.5 mg/dL (8.6-10.8) L D 09/07/17 06:47 Serum Total Protein 8.8 g/dL (6.0-8.3) H 09/06/17 20:00 Globulin 4.3 g/dL (2.4-3.5) H 09/06/17 20:00 Albumin/Globulin Ratio 1.0 (1.1-2.2) L 09/06/17 20:00 Ur Specific Powell 1.028 (1.010-1.025) H 09/06/17 19:55 Ur Leukocyte Esterase Trace (Negative) H 09/06/17 19:55 Ur Squamous Epith Cells Many per lpf (None-Few) H 09/06/17 19:55 Ur Culture Indicated? YES (NO) A 09/06/17 19:55 Diabetes panel 09/07/17 Range/Units 06:47 Sodium 135 L (136-145) mEq/L Potassium 4.0 (3.5-4.5) mEq/L Chloride 104 (98-109) mEq/L Carbon Dioxide 22 (19-29) mEq/L BUN 10 (7-20) mg/dL Creatinine 0.76 (0.57-1.11) mg/dL Glucose 119 H (70-99) mg/dL Calcium 8.5 L D (8.6-10.8) mg/dL Calcium panel 09/07/17 Range/Units 06:47 Calcium 8.5 L D (8.6-10.8) mg/dL Pituitary panel 09/07/17 Range/Units 06:47 Sodium 135 L (136-145) mEq/L Potassium 4.0 (3.5-4.5) mEq/L Chloride 104 (98-109) mEq/L Carbon Dioxide 22 (19-29) mEq/L BUN 10 (7-20) mg/dL Creatinine 0.76 (0.57-1.11) mg/dL Glucose 119 H (70-99) mg/dL Calcium 8.5 L D (8.6-10.8) mg/dL Adrenal panel 09/07/17 Range/Units 06:47 Sodium 135 L (136-145) mEq/L Potassium 4.0 (3.5-4.5) mEq/L Chloride 104 (98-109) mEq/L Carbon Dioxide 22 (19-29) mEq/L BUN 10 (7-20) mg/dL Creatinine 0.76 (0.57-1.11) mg/dL Glucose 119 H (70-99) mg/dL Calcium 8.5 L D (8.6-10.8) mg/dL All other labs normal. - Imaging CT scan - abdomen: report reviewed, image reviewed CT scan - pelvis: report reviewed, image reviewed Consult Discharge Plan - Plan Referrals: Esvin-Leah Mccray DO [Primary Care Provider] -
[2017-09-08] MEDS: MetroNIDAZOLE 500 MG/100 ML 500 MG/100 ML BAG IVPB SCH ×4 (00:44→23:02)
[2017-09-08] MEDS: *HR* HYDROmorphone (PF) 1 MG/ML SYRINGE IVP PRN ×8 (00:51→21:20)
[2017-09-08] MEDS: Ondansetron 4 MG/2 ML VIAL IVP PRN ×3 (03:27→18:14)
[2017-09-08 04:33] LABS: Basophils % 0.5 %; Eosinophils # 0.1 K/mcL (0.0-0.6); Hematocrit 35.9 % (35.3-44.9); Immature Granulocytes % 0.4 % (0-4); Lymphocytes # 2.9 K/mcL (0.6-4.6); Lymphocytes % 37.8 %; Mean Corpuscular HGB Conc 33.4 g/dL (31.6-35.5); Mean Corpuscular Hemoglobin 30.9 pg (28.0-33.3); Mean Corpuscular Volume 92.5 fL (83.0-100.0); Monocytes # 0.5 K/mcL (0.0-1.3); Neutrophils # 4.2 K/mcL (1.6-8.9); Platelet Count 227 K/mcL (140-400); Red Blood Count 3.88 M/mcL (3.82-4.97); Red Cell Distribution Width 12.7 % (11.5-14.5); Segmented Neutrophils % 54.3 %
[2017-09-08 04:49] LABS: BUN/Creatinine Ratio 10 (6-26); Blood Urea Nitrogen 7 mg/dL (7-20); C-Reactive Protein 23 mg/L (Less than 5); Calcium 8.3 mg/dL (8.6-10.8); Carbon Dioxide 23 mEq/L (19-29); Chloride 106 mEq/L (98-109); Glucose 81 mg/dL (70-99); Osmolality,Calculated 279 (280-300); Potassium 3.9 mEq/L (3.5-4.5); Sodium 136 mEq/L (136-145); eGFR For African Americans > 60 (> 60); eGFR For Non-African Americans > 60 (> 60)
[2017-09-08] MEDS: *HR* Heparin 5,000 UNIT/ML VIAL SQ SCH ×2 (06:17→18:13)
[2017-09-08] MEDS: Pantoprazole 40 MG VIAL IVP SCH (06:17)
[2017-09-08] MEDS: 0.9 % Sodium Chloride 1,000 ML IVC SCH ×3 (06:32→23:01)
[2017-09-08] MEDS: Nicotine 21 MG PATCH.TD24 TD SCH (08:49)
[2017-09-08] MEDS: Gabapentin 300 MG CAPSULE PO SCH ×3 (08:49→21:20)
--- NOTE | 2017-09-08 14:13 | General Surgery Progress Note ---
<Sofia Nicole Mary - Last Filed: 09/08/17 14:19> Date of Encounter: 09/08/17 Time of Encounter: 14:00 - Assessment and Plan (1) Typhlitis Current Visit: Yes Status: Acute Continue bowel rest IV antibiotics- Cipro and Flagyl Supportive care and pain control Increase activities as tolerated IS every 1 hour while awake Will continue to follow and assess progress Recommend outpatient follow-up for colonoscopy in the next 6-8 weeks (2) Nausea Current Visit: Yes Status: Acute Zofran increased to every 4 hours prn Phenergan for nausea uncontrolled by zofran (3) Hepatitis C Current Visit: Yes Status: Chronic Qualifiers: Viral hepatitis chronicity: chronic Hepatic coma status: without hepatic coma Qualified Code(s): B18.2 - Chronic viral hepatitis C Subjective Patient reports: no new complaints, feels better, still having pain, pain is less, voiding w/o difficulty, no flatus, no bowel movement, nausea, afebrile Objective Vital Signs - Last 8 Hours Temp Pulse Resp BP Pulse Ox 09/08/17 11:41 98.3 F 67 18 100/63 97 09/08/17 08:41 98.2 F 67 18 100/64 96 Intake and Output 09/07/17 09/08/17 09/08/17 23:59 07:59 15:59 Intake Total 1300 / 1300 1100 / 1100 0 / 0 Output Total 300 / 300 400 / 400 Balance 1000 / 1000 700 / 700 0 / 0 Intake: IV Fluids 1300 / 1300 1100 / 1100 0.9 % Sodium Chloride 1,000 ML 1000 / 1000 1000 / 1000 @ 150 mls/hr IVC .[id number] [facility] Rx #:[id number] Cipro Premix 400 MG/200 ML 400 200 / 200 mg In 200 ml @ 200 mls/hr IVPB Q12HR [facility] Rx#:[id number] Flagyl Premix 500 MG/100 ML 500 100 / 100 100 / 100 mg In 100 ml @ 100 mls/hr IVPB Q8HR [facility] Rx#:[id number] Oral 0 / 0 0 / 0 Output: Urine 300 / 300 400 / 400 Other: Meal NPO Dinner # Voids 1 Weight 77.111 kg Blood Glucose* 81 80 74 Patient Weight 09/08/17 23:59 Weight 77.111 kg - General physical appearance well developed, well nourished, moderate pain - Eyes normal ocular movement - ENT normal mucosa, atraumatic, normocephalic - Neck Neck exam: trachea midline - Respiratory normal respiratory effort, clear to auscultation - Cardiovascular Cardiovascular exam: Present: RRR - Abdomen Abdomen: Present: bowel sounds present (minimal, hypoactive), soft, tender Abdominal Tenderness: RLQ, suprapubic - Neurologic CN 2-12 grossly intact - Musculoskeletal normal gait, normal posture - Psychiatric oriented to time, oriented to person, oriented to place, speech is normal, memory intact - Labs 09/08/17 04:17 09/08/17 04:17 Diabetes panel 09/08/17 Range/Units 04:17 Sodium 136 (136-145) mEq/L Potassium 3.9 (3.5-4.5) mEq/L Chloride 106 (98-109) mEq/L Carbon Dioxide 23 (19-29) mEq/L BUN 7 (7-20) mg/dL Creatinine 0.67 (0.57-1.11) mg/dL Glucose 81 (70-99) mg/dL Calcium 8.3 L (8.6-10.8) mg/dL Calcium panel 09/08/17 Range/Units 04:17 Calcium 8.3 L (8.6-10.8) mg/dL Pituitary panel 09/08/17 Range/Units 04:17 Sodium 136 (136-145) mEq/L Potassium 3.9 (3.5-4.5) mEq/L Chloride 106 (98-109) mEq/L Carbon Dioxide 23 (19-29) mEq/L BUN 7 (7-20) mg/dL Creatinine 0.67 (0.57-1.11) mg/dL Glucose 81 (70-99) mg/dL Calcium 8.3 L (8.6-10.8) mg/dL Adrenal panel 09/08/17 Range/Units 04:17 Sodium 136 (136-145) mEq/L Potassium 3.9 (3.5-4.5) mEq/L Chloride 106 (98-109) mEq/L Carbon Dioxide 23 (19-29) mEq/L BUN 7 (7-20) mg/dL Creatinine 0.67 (0.57-1.11) mg/dL Glucose 81 (70-99) mg/dL Calcium 8.3 L (8.6-10.8) mg/dL Consult Discharge Plan - Plan Referrals: Leah Holguin DO [Primary Care Provider] - - Attending Attestation For this encounter, I have reviewed the ORAL SURGERY TECHNICIAN or PA documentation, treatment plan, and medical decision making; and I have had face to face time with this patient. <Maria Esther Dodson - Last Filed: 09/08/17 17:23> Date of Encounter: 09/08/17 - Assessment and Plan (1) Typhlitis Current Visit: Yes Status: Acute continue conservative therapy at this time and patient appears to be in too much pain to start po intake continue ice chips and popcicles ambulate prn pain control serial abdominal exams continue Abx wbc wnl (2) Hepatitis C Current Visit: Yes Status: Chronic Qualifiers: Viral hepatitis chronicity: chronic Hepatic coma status: without hepatic coma Qualified Code(s): B18.2 - Chronic viral hepatitis C Subjective Patient reports: feels better, still having pain, pain is less, voiding w/o difficulty, no flatus, no bowel movement Objective Vital Signs - Last 8 Hours Temp Pulse Resp BP Pulse Ox 09/08/17 14:49 98.3 F 71 18 114/71 98 09/08/17 11:41 98.3 F 67 18 100/63 97 Intake and Output 09/08/17 09/08/17 09/08/17 07:59 15:59 23:59 Intake Total 1100 / 1100 100 / 100 Output Total 400 / 400 Balance 700 / 700 100 / 100 Intake: IV Fluids 1100 / 1100 100 / 100 0.9 % Sodium Chloride 1,000 ML 1000 / 1000 @ 150 mls/hr IVC .Q6H40M [facility] Rx #:[id number] Flagyl Premix 500 MG/100 ML 500 100 / 100 100 / 100 mg In 100 ml @ 100 mls/hr IVPB Q8HR [facility] Rx#:[id number] Oral 0 / 0 Output: Urine 400 / 400 Other: # Voids 1 Weight 77.111 kg Blood Glucose* 80 74 68 Patient Weight 09/08/17 23:59 Weight 77.111 kg - General physical appearance well developed, well nourished, moderate pain - Eyes PERRL, normal ocular movement - ENT normal mucosa, normocephalic - Neck Neck exam: trachea midline - Respiratory normal expansion, clear to auscultation - Cardiovascular Cardiovascular exam: Present: RRR - Abdomen Abdomen: Present: bowel sounds present, soft, tender Abdominal Tenderness: RLQ (I feel she is exaggerating her pain) - Integumentary no rash, no growths - Musculoskeletal normal gait, normal posture - Psychiatric oriented to time, oriented to person, oriented to place, speech is normal, memory intact - Labs 09/08/17 04:17 09/08/17 04:17 Diabetes panel 09/08/17 Range/Units 04:17 Sodium 136 (136-145) mEq/L Potassium 3.9 (3.5-4.5) mEq/L Chloride 106 (98-109) mEq/L Carbon Dioxide 23 (19-29) mEq/L BUN 7 (7-20) mg/dL Creatinine 0.67 (0.57-1.11) mg/dL Glucose 81 (70-99) mg/dL Calcium 8.3 L (8.6-10.8) mg/dL Calcium panel 09/08/17 Range/Units 04:17 Calcium 8.3 L (8.6-10.8) mg/dL Pituitary panel 09/08/17 Range/Units 04:17 Sodium 136 (136-145) mEq/L Potassium 3.9 (3.5-4.5) mEq/L Chloride 106 (98-109) mEq/L Carbon Dioxide 23 (19-29) mEq/L BUN 7 (7-20) mg/dL Creatinine 0.67 (0.57-1.11) mg/dL Glucose 81 (70-99) mg/dL Calcium 8.3 L (8.6-10.8) mg/dL Adrenal panel 09/08/17 Range/Units 04:17 Sodium 136 (136-145) mEq/L Potassium 3.9 (3.5-4.5) mEq/L Chloride 106 (98-109) mEq/L Carbon Dioxide 23 (19-29) mEq/L BUN 7 (7-20) mg/dL Creatinine 0.67 (0.57-1.11) mg/dL Glucose 81 (70-99) mg/dL Calcium 8.3 L (8.6-10.8) mg/dL - Attending Attestation I have personally performed a face to face evaluation on this patient. I have reviewed and agree with the care plan. History and Exam by me shows:
--- NOTE | 2017-09-08 15:24 | Internal Med Progress Note ---
Date of Encounter: 09/08/17 Time of Encounter: 09:40 - Assessment and plan (1) Intractable abdominal pain Current Visit: Yes Status: Acute Assessment and plan: In the right lower quadrant. Due to typhlitis. Continue intravenous antibiotics. Pain control. Keep nothing by mouth. Surgery following. High risk for complications due to use of intravenous narcotic medications. (2) Colitis presumed infectious Current Visit: Yes Status: Acute Assessment and plan: Possible infectious typhlitis. Treat with IV antibiotics. Follow up outpatient in 4-6 weeks for colonoscopy. (3) Nausea Current Visit: Yes Status: Acute Assessment and plan: Treat with intravenous antiemetics. (4) Sepsis Current Visit: Yes Status: Acute Assessment and plan: Due to intra-abdominal infection. Sepsis resolving. Cultures have been negative. Qualifiers: Sepsis type: sepsis due to unspecified organism Qualified Code(s): A41.9 - Sepsis, unspecified organism (5) Hepatitis C Current Visit: Yes Status: Chronic Assessment and plan: Follow-up outpatient for further management and treatment. Qualifiers: Viral hepatitis chronicity: chronic Hepatic coma status: without hepatic coma Qualified Code(s): B18.2 - Chronic viral hepatitis C - Subjective Interval history: Patient continues to have severe right lower quadrant abdominal pain. Also having nausea. No hematemesis or melena. No fever or chills overnight. - Constitutional Vitals: Temp Pulse Resp BP Pulse Ox 98.3 F 71 18 114/71 98 09/08/17 14:49 09/08/17 14:49 09/08/17 14:49 09/08/17 14:49 09/08/17 14:49 General appearance: Present: cooperative, mild distress, A&O X 3, pleasant, obese, answers questions appropriately - Neck Neck exam general surgery: Present: supple, trachea midline. Absent: lymphadenopathy - Respiratory Respiratory exam: Present: CTAB. Absent: accessory muscle use, rales, rhonchi, wheezes - Cardiovascular Cardiovascular exam: Present: RRR, +S1, +S2. Absent: diastolic murmur, gallop, rubs, systolic murmur - GI/Abdominal GI/Abdominal exam: Present: normal bowel sounds, soft, tenderness (Right lower quadrant), no peritoneal signs. Absent: distended - Extremities Exam Extremities exam: Present: warm, radial pulses palpable and symmetrical. Absent : calf tenderness, cyanotic, pedal edema Internal Medicine: Result - Labs CBC & Chem 7: 09/08/17 04:17 09/08/17 04:17 Labs: Short CBC 09/08/17 Range/Units 04:17 WBC 7.8 (4.3-11.1) K/mcL Hgb 12.0 (11.5-15.4) g/dL Hct 35.9 (35.3-44.9) % Plt Count 227 (140-400) K/mcL Neutrophils # 4.2 (1.6-8.9) K/mcL BMP 09/08/17 04:17 Sodium 136 Potassium 3.9 Chloride 106 Carbon Dioxide 23 BUN 7 Creatinine 0.67 Glucose 81 Calcium 8.3 L Consult Discharge Plan - Plan Referrals: Esvin-Leah Mccray DO [Primary Care Provider] -
[2017-09-08] MEDS: *HR* Promethazine 25 MG/ML VIAL IVP PRN (19:55)
[2017-09-09] MEDS: *HR* HYDROmorphone (PF) 1 MG/ML SYRINGE IVP PRN ×8 (02:24→23:01)
[2017-09-09] MEDS: Ondansetron 4 MG/2 ML VIAL IVP PRN ×2 (02:25→19:57)
[2017-09-09] MEDS: *HR* Heparin 5,000 UNIT/ML VIAL SQ SCH ×2 (05:14→17:17)
[2017-09-09] MEDS: Pantoprazole 40 MG VIAL IVP SCH (05:15)
[2017-09-09] MEDS: MetroNIDAZOLE 500 MG/100 ML 500 MG/100 ML BAG IVPB SCH ×3 (08:09→23:02)
[2017-09-09] MEDS: *HR* Promethazine 25 MG/ML VIAL IVP PRN ×2 (08:09→13:11)
[2017-09-09] MEDS: Gabapentin 300 MG CAPSULE PO SCH ×3 (08:10→19:56)
[2017-09-09] MEDS: Nicotine 21 MG PATCH.TD24 TD SCH (08:11)
--- NOTE | 2017-09-09 11:56 | General Surgery Progress Note ---
<WardSofia Mary - Last Filed: 09/09/17 11:54> Date of Encounter: 09/09/17 Time of Encounter: 11:40 - Assessment and Plan (1) Typhlitis Current Visit: Yes Status: Acute Continue bowel rest IV antibiotics- Cipro and Flagyl Supportive care and pain control Increase activities as tolerated IS every 1 hour while awake Will continue to follow and assess progress Recommend outpatient follow-up for colonoscopy in the next 6-8 weeks (2) Nausea Current Visit: Yes Status: Acute Improved today Zofran every 4 hours prn Phenergan for nausea uncontrolled by zofran (3) Hepatitis C Current Visit: Yes Status: Chronic Qualifiers: Viral hepatitis chronicity: chronic Hepatic coma status: without hepatic coma Qualified Code(s): B18.2 - Chronic viral hepatitis C Subjective Patient reports: no new complaints, still having pain, voiding w/o difficulty, no flatus, no bowel movement, nausea (improved with medication regimen), afebrile Objective Vital Signs - Last 8 Hours Temp Pulse Resp BP Pulse Ox 09/09/17 10:43 98.2 F 78 16 107/63 98 09/09/17 06:50 97.9 F 58 16 106/66 95 09/09/17 05:01 98.8 F 61 16 102/58 94 Intake and Output 09/08/17 09/09/17 09/09/17 23:59 07:59 15:59 Intake Total 300 / 300 100 / 100 Output Total 0 / 0 200 / 200 700 / 700 Balance 300 / 300 -100 / -100 -700 / -700 Intake: IV Fluids 300 / 300 100 / 100 Cipro Premix 400 MG/200 ML 400 200 / 200 mg In 200 ml @ 200 mls/hr IVPB Q12HR [facility] Rx#:[id number] Flagyl Premix 500 MG/100 ML 500 100 / 100 100 / 100 mg In 100 ml @ 100 mls/hr IVPB Q8HR [facility] Rx#:[id number] Oral 0 / 0 0 / 0 Output: Urine 0 / 0 200 / 200 700 / 700 Other: Meal NPO Blood Glucose* 68 84 82 - General physical appearance well developed, well nourished, moderate pain - Eyes normal ocular movement - ENT normal mucosa, atraumatic, normocephalic - Neck Neck exam: trachea midline - Respiratory normal respiratory effort, clear to auscultation - Cardiovascular Cardiovascular exam: Present: RRR - Abdomen Abdomen: Present: bowel sounds present, soft, tender Abdominal Tenderness: RLQ - Neurologic CN 2-12 grossly intact - Psychiatric oriented to time, oriented to person, oriented to place, speech is normal, memory intact - Labs 09/08/17 04:17 09/08/17 04:17 Consult Discharge Plan - Plan Referrals: Esvin-Leah Mccray DO [Primary Care Provider] - - Attending Attestation For this encounter, I have reviewed the CAN LINE OPERATOR or PA documentation, treatment plan, and medical decision making; and I have had face to face time with this patient. <Maria Esther Dodson - Last Filed: 09/10/17 11:12> Date of Encounter: 09/09/17 - Assessment and Plan (1) Typhlitis Current Visit: Yes Status: Acute continue abx feel patient is being a little exaggerative regarding pain decrease pain medication gi/dvt prophylaxis start clears f/u as outpt for colonoscopy (2) Hepatitis C Current Visit: Yes Status: Chronic Qualifiers: Viral hepatitis chronicity: chronic Hepatic coma status: without hepatic coma Qualified Code(s): B18.2 - Chronic viral hepatitis C Subjective Patient reports: still having pain, pain is less, voiding w/o difficulty, no flatus, no bowel movement Objective Vital Signs - Last 8 Hours Temp Pulse Resp BP Pulse Ox 09/10/17 10:57 97.8 F 48 16 105/62 97 09/10/17 07:51 97.9 F 18 145/90 96 Intake and Output 09/09/17 09/10/17 09/10/17 23:59 07:59 15:59 Intake Total 300 / 300 300 / 300 0 / 0 Output Total 200 / 200 Balance 300 / 300 100 / 100 0 / 0 Intake: IV Fluids 300 / 300 300 / 300 0.9 % Sodium Chloride 1,000 ML 200 / 200 @ 75 mls/hr IVC .[id number] [facility] Rx #:[id number] Cipro Premix 400 MG/200 ML 400 200 / 200 mg In 200 ml @ 200 mls/hr IVPB Q12HR [facility] Rx#:[id number] Flagyl Premix 500 MG/100 ML 500 100 / 100 100 / 100 mg In 100 ml @ 100 mls/hr IVPB Q8HR [facility] Rx#:[id number] Oral 0 / 0 Output: Urine 200 / 200 Other: Meal npo Breakfast Percent of Meal Consumed 0% # Voids 1 Weight 94.982 kg Blood Glucose* 114 83 Patient Weight 09/10/17 23:59 Weight 94.982 kg - General physical appearance well developed, well nourished, moderate pain - Eyes PERRL, normal ocular movement - ENT normal mucosa, normocephalic - Neck Neck exam: trachea midline - Respiratory normal expansion, normal respiratory effort - Cardiovascular Cardiovascular exam: Present: RRR - Abdomen Abdomen: Present: bowel sounds present, soft, tender. Absent: distended, guarding, rebound Abdominal Tenderness: RLQ - Integumentary no growths - Neurologic CN 2-12 grossly intact - Musculoskeletal normal posture - Psychiatric oriented to time, oriented to person, oriented to place, speech is normal, memory intact - Labs 09/10/17 05:28 09/10/17 05:28 Diabetes panel 09/10/17 Range/Units 05:28 Sodium 138 (136-145) mEq/L Potassium 4.5 (3.5-4.5) mEq/L Chloride 111 H (98-109) mEq/L Carbon Dioxide 18 L (19-29) mEq/L BUN 7 (7-20) mg/dL Creatinine 0.69 (0.57-1.11) mg/dL Glucose 81 (70-99) mg/dL Calcium 8.5 L (8.6-10.8) mg/dL Calcium panel 09/10/17 Range/Units 05:28 Calcium 8.5 L (8.6-10.8) mg/dL Pituitary panel 09/10/17 Range/Units 05:28 Sodium 138 (136-145) mEq/L Potassium 4.5 (3.5-4.5) mEq/L Chloride 111 H (98-109) mEq/L Carbon Dioxide 18 L (19-29) mEq/L BUN 7 (7-20) mg/dL Creatinine 0.69 (0.57-1.11) mg/dL Glucose 81 (70-99) mg/dL Calcium 8.5 L (8.6-10.8) mg/dL Adrenal panel 09/10/17 Range/Units 05:28 Sodium 138 (136-145) mEq/L Potassium 4.5 (3.5-4.5) mEq/L Chloride 111 H (98-109) mEq/L Carbon Dioxide 18 L (19-29) mEq/L BUN 7 (7-20) mg/dL Creatinine 0.69 (0.57-1.11) mg/dL Glucose 81 (70-99) mg/dL Calcium 8.5 L (8.6-10.8) mg/dL - Attending Attestation I have personally performed a face to face evaluation on this patient. I have reviewed and agree with the care plan. History and Exam by me shows:
--- NOTE | 2017-09-09 22:27 | Internal Med Progress Note ---
Date of Encounter: 09/09/17 Time of Encounter: 13:27 - Assessment and plan (1) Intractable abdominal pain Current Visit: Yes Status: Acute Assessment and plan: In the right lower quadrant. Due to typhlitis. Continue intravenous antibiotics. Pain control. Keep nothing by mouth. Surgery following. High risk for complications due to use of intravenous narcotic medications. (2) Colitis presumed infectious Current Visit: Yes Status: Acute (3) Marijuana abuse Current Visit: No Status: Chronic (4) Nausea Current Visit: Yes Status: Acute (5) Sepsis Current Visit: Yes Status: Acute Assessment and plan: Due to intra-abdominal infection. Sepsis resolving. Cultures have been negative. Qualifiers: Sepsis type: sepsis due to unspecified organism Qualified Code(s): A41.9 - Sepsis, unspecified organism (6) Hepatitis C Current Visit: Yes Status: Chronic Assessment and plan: Follow-up outpatient for further management and treatment. Qualifiers: Viral hepatitis chronicity: chronic Hepatic coma status: without hepatic coma Qualified Code(s): B18.2 - Chronic viral hepatitis C (7) Typhlitis Current Visit: Yes Status: Acute - Subjective Interval history: No acute events. Has minimal nausea,. - Constitutional Vitals: Temp Pulse Resp BP Pulse Ox 98.1 F 69 16 154/76 99 09/09/17 18:50 09/09/17 18:50 09/09/17 18:50 09/09/17 19:20 09/09/17 18:50 General appearance: Present: cooperative, mild distress, A&O X 3, pleasant, obese, answers questions appropriately Exam: - Eyes normal ocular movement - ENT normal mucosa, atraumatic, normocephalic - Neck Neck exam: trachea midline - Respiratory normal respiratory effort, clear to auscultation - Cardiovascular Cardiovascular exam: Present: RRR - Abdomen Abdomen: Present: bowel sounds present, soft, tender (RLQ) Internal Medicine: Result - Labs CBC & Chem 7: 09/08/17 04:17 09/08/17 04:17 Consult Discharge Plan - Plan Referrals: Esvin-Leah Mccray DO [Primary Care Provider] -
[2017-09-10] MEDS: *HR* HYDROmorphone (PF) 1 MG/ML SYRINGE IVP PRN ×9 (02:28→23:21)
[2017-09-10] MEDS: 0.9 % Sodium Chloride 1,000 ML IVC SCH ×2 (02:33→19:06)
[2017-09-10] MEDS: *HR* Heparin 5,000 UNIT/ML VIAL SQ SCH ×2 (05:44→17:25)
[2017-09-10] MEDS: Pantoprazole 40 MG VIAL IVP SCH (05:44)
[2017-09-10 05:50] LABS: Basophils % 0.4 %; Eosinophils # 0.1 K/mcL (0.0-0.6); Eosinophils % 1.3 %; Hematocrit 36.6 % (35.3-44.9); Hemoglobin 12.6 g/dL (11.5-15.4); Immature Granulocytes % 0.4 % (0-4); Lymphocytes # 2.5 K/mcL (0.6-4.6); Lymphocytes % 36.3 %; Mean Corpuscular HGB Conc 34.4 g/dL (31.6-35.5); Mean Corpuscular Hemoglobin 31.3 pg (28.0-33.3); Mean Corpuscular Volume 90.8 fL (83.0-100.0); Mean Platelet Volume 9.2 fL (9.4-12.4); Monocytes # 0.6 K/mcL (0.0-1.3); Monocytes % 8.9 %; Neutrophils # 3.6 K/mcL (1.6-8.9); Platelet Count 241 K/mcL (140-400); Red Blood Count 4.03 M/mcL (3.82-4.97); Red Cell Distribution Width 12.6 % (11.5-14.5); Segmented Neutrophils % 52.7 %
[2017-09-10 06:10] LABS: BUN/Creatinine Ratio 10 (6-26); Blood Urea Nitrogen 7 mg/dL (7-20); Calcium 8.5 mg/dL (8.6-10.8); Carbon Dioxide 18 mEq/L (19-29); Chloride 111 mEq/L (98-109); Glucose 81 mg/dL (70-99); Osmolality,Calculated 283 (280-300); Potassium 4.5 mEq/L (3.5-4.5); eGFR For African Americans > 60 (> 60); eGFR For Non-African Americans > 60 (> 60)
[2017-09-10 06:11] LABS: Sodium 138 mEq/L (136-145)
[2017-09-10] MEDS: Gabapentin 300 MG CAPSULE PO SCH ×3 (07:56→21:01)
[2017-09-10] MEDS: MetroNIDAZOLE 500 MG/100 ML 500 MG/100 ML BAG IVPB SCH ×3 (07:56→23:21)
[2017-09-10] MEDS: Nicotine 21 MG PATCH.TD24 TD SCH (07:58)
[2017-09-10 10:22] LABS: HCV Quant Interpretation DETECTED (Not Detected)
[2017-09-10] MEDS: Ondansetron 4 MG/2 ML VIAL IVP PRN ×2 (12:14→17:25)
--- NOTE | 2017-09-10 15:14 | General Surgery Progress Note ---
Date of Encounter: 09/10/17 Time of Encounter: 15:00 - Assessment and Plan (1) Typhlitis Current Visit: Yes Status: Acute Advance to soft diet as tolerated IV antibiotics- Cipro and Flagyl (may transition to PO at discharge) Supportive care and pain control Increase activities as tolerated IS every 1 hour while awake Surgery will sign off at this time, thank you for allowing us to participate in her care. Please call with any further questions or concerns. Recommend outpatient follow-up for colonoscopy in the next 6-8 weeks (2) Nausea Current Visit: Yes Status: Acute Improved today Zofran every 4 hours prn Phenergan for nausea uncontrolled by zofran (3) Hepatitis C Current Visit: Yes Status: Chronic Qualifiers: Viral hepatitis chronicity: chronic Hepatic coma status: without hepatic coma Qualified Code(s): B18.2 - Chronic viral hepatitis C Subjective Patient reports: no new complaints, feels better, still having pain, pain is less, voiding w/o difficulty, flatus, afebrile Objective Vital Signs - Last 8 Hours Temp Pulse Resp BP Pulse Ox 09/10/17 10:57 97.8 F 48 16 105/62 97 09/10/17 07:51 97.9 F 18 145/90 96 Intake and Output 09/09/17 09/10/17 09/10/17 23:59 07:59 15:59 Intake Total 300 / 300 300 / 300 0 / 0 Output Total 200 / 200 Balance 300 / 300 100 / 100 0 / 0 Intake: IV Fluids 300 / 300 300 / 300 0.9 % Sodium Chloride 1,000 ML 200 / 200 @ 75 mls/hr IVC .[id number] JAROD Rx #:[id number] Cipro Premix 400 MG/200 ML 400 200 / 200 mg In 200 ml @ 200 mls/hr IVPB Q12HR JAROD Rx#:[id number] Flagyl Premix 500 MG/100 ML 500 100 / 100 100 / 100 mg In 100 ml @ 100 mls/hr IVPB Q8HR JAROD Rx#:[id number] Oral 0 / 0 Output: Urine 200 / 200 Other: Meal npo Breakfast Percent of Meal Consumed 0% # Voids 1 Weight 94.982 kg Blood Glucose* 114 83 Patient Weight 09/10/17 23:59 Weight 94.982 kg - General physical appearance well developed, well nourished, no distress - Eyes normal ocular movement - ENT normal mucosa, atraumatic, normocephalic - Neck Neck exam: trachea midline - Respiratory normal respiratory effort, clear to auscultation - Cardiovascular Cardiovascular exam: Present: RRR - Abdomen Abdomen: Present: bowel sounds present, soft, tender (improved) Abdominal Tenderness: RLQ - Neurologic CN 2-12 grossly intact - Musculoskeletal normal gait, normal posture - Psychiatric oriented to time, oriented to person, oriented to place, speech is normal, memory intact - Labs 09/10/17 05:28 09/10/17 05:28 Diabetes panel 09/10/17 Range/Units 05:28 Sodium 138 (136-145) mEq/L Potassium 4.5 (3.5-4.5) mEq/L Chloride 111 H (98-109) mEq/L Carbon Dioxide 18 L (19-29) mEq/L BUN 7 (7-20) mg/dL Creatinine 0.69 (0.57-1.11) mg/dL Glucose 81 (70-99) mg/dL Calcium 8.5 L (8.6-10.8) mg/dL Calcium panel 09/10/17 Range/Units 05:28 Calcium 8.5 L (8.6-10.8) mg/dL Pituitary panel 09/10/17 Range/Units 05:28 Sodium 138 (136-145) mEq/L Potassium 4.5 (3.5-4.5) mEq/L Chloride 111 H (98-109) mEq/L Carbon Dioxide 18 L (19-29) mEq/L BUN 7 (7-20) mg/dL Creatinine 0.69 (0.57-1.11) mg/dL Glucose 81 (70-99) mg/dL Calcium 8.5 L (8.6-10.8) mg/dL Adrenal panel 09/10/17 Range/Units 05:28 Sodium 138 (136-145) mEq/L Potassium 4.5 (3.5-4.5) mEq/L Chloride 111 H (98-109) mEq/L Carbon Dioxide 18 L (19-29) mEq/L BUN 7 (7-20) mg/dL Creatinine 0.69 (0.57-1.11) mg/dL Glucose 81 (70-99) mg/dL Calcium 8.5 L (8.6-10.8) mg/dL Consult Discharge Plan - Plan Additional Instructions: Soft diet as tolerated Referrals: Esvin-Leah Mccray DO [Primary Care Provider] - Maria Esther Dodson MD [Partnered Physician] - 09/24/17 9:35 am (hospital follow- up) - Attending Attestation For this encounter, I have reviewed the [employer]PERATOR or PA documentation, treatment plan, and medical decision making; and I have had face to face time with this patient.
[2017-09-10] MEDS: *HR* Promethazine 25 MG/ML VIAL IVP PRN ×2 (19:05→20:58)
[2017-09-11] MEDS: 0.9 % Sodium Chloride 1,000 ML IVC SCH (02:00)
[2017-09-11] MEDS: *HR* HYDROmorphone (PF) 1 MG/ML SYRINGE IVP PRN ×3 (02:28→07:56)
[2017-09-11 05:10] LABS: Basophils # 0.1 K/mcL (0.0-0.2); Basophils % 0.7 %; Eosinophils # 0.1 K/mcL (0.0-0.6); Eosinophils % 1.6 %; Hematocrit 35.2 % (35.3-44.9); Hemoglobin 12.4 g/dL (11.5-15.4); Immature Granulocytes % 2.4 % (0-4); Lymphocytes # 2.7 K/mcL (0.6-4.6); Lymphocytes % 38.9 %; Mean Corpuscular HGB Conc 35.2 g/dL (31.6-35.5); Mean Corpuscular Hemoglobin 31.9 pg (28.0-33.3); Mean Corpuscular Volume 90.5 fL (83.0-100.0); Mean Platelet Volume 9.4 fL (9.4-12.4); Monocytes # 0.6 K/mcL (0.0-1.3); Monocytes % 8.6 %; Neutrophils # 3.4 K/mcL (1.6-8.9); Nucleated Red Blood Cells 0.6 /100 WBC (0); Platelet Count 231 K/mcL (140-400); Red Blood Count 3.89 M/mcL (3.82-4.97); Red Cell Distribution Width 12.8 % (11.5-14.5); Segmented Neutrophils % 47.8 %
[2017-09-11] MEDS: Pantoprazole 40 MG VIAL IVP SCH (05:57)
[2017-09-11] MEDS: Ondansetron 4 MG/2 ML VIAL IVP PRN (05:57)
[2017-09-11] MEDS: *HR* Heparin 5,000 UNIT/ML VIAL SQ SCH ×2 (05:57→18:21)
[2017-09-11 07:51] LABS: BUN/Creatinine Ratio 10 (6-26); Blood Urea Nitrogen 7 mg/dL (7-20); Calcium 8.4 mg/dL (8.6-10.8); Carbon Dioxide 24 mEq/L (19-29); Chloride 107 mEq/L (98-109); Glucose 102 mg/dL (70-99); Osmolality,Calculated 284 (280-300); Sodium 138 mEq/L (136-145); eGFR For African Americans > 60 (> 60); eGFR For Non-African Americans > 60 (> 60)
[2017-09-11 07:52] LABS: Potassium 3.4 mEq/L (3.5-4.5)
[2017-09-11] MEDS: MetroNIDAZOLE 500 MG/100 ML 500 MG/100 ML BAG IVPB SCH (07:58)
[2017-09-11] MEDS: Nicotine 21 MG PATCH.TD24 TD SCH (08:01)
[2017-09-11] MEDS: Gabapentin 300 MG CAPSULE PO SCH ×2 (08:03→14:06)
[2017-09-11] MEDS ORDERED: *HR* OxyCODONE/APAP 5/325 TABLET PO PRN ×2 (08:30→12:47)
[2017-09-11] MEDS: Potassium Chloride Elixir 20 MEQ/15 ML UDC PO ONE ×2 (08:54→08:56)
[2017-09-11] MEDS: metroNIDAZOLE 500 MG TABLET PO SCH ×2 (08:58→14:06)
[2017-09-11] MEDS: Ondansetron ODT 4 MG TAB.RAPDIS SL PRN ×2 (10:36→16:45)
[2017-09-11 11:56] VITALS: BP 107/74
[2017-09-11] MEDS ORDERED: *HR* OxyCODONE/APAP 5/325 TABLET PO ONE (16:31)
--- NOTE | 2017-09-11 16:31 | Internal Med Progress Note ---
Date of Encounter: 09/10/17 Time of Encounter: 16:29 - Assessment and plan (1) Typhlitis Current Visit: Yes Status: Acute Assessment and plan: Significant improvement. Once patient able to tolerate PO should be okay for discharge. (2) Intractable abdominal pain Current Visit: Yes Status: Acute (3) Colitis presumed infectious Current Visit: Yes Status: Acute (4) Marijuana abuse Current Visit: No Status: Chronic (5) Nausea Current Visit: Yes Status: Acute (6) Sepsis Current Visit: Yes Status: Acute Qualifiers: Sepsis type: sepsis due to unspecified organism Qualified Code(s): A41.9 - Sepsis, unspecified organism (7) Hepatitis C Current Visit: Yes Status: Chronic Qualifiers: Viral hepatitis chronicity: chronic Hepatic coma status: without hepatic coma Qualified Code(s): B18.2 - Chronic viral hepatitis C - Subjective Interval history: No acute events. Diet poor - Constitutional Vitals: Temp Pulse Resp BP Pulse Ox 98.0 F 73 16 107/74 98 09/11/17 11:49 09/11/17 11:49 09/11/17 11:49 09/11/17 11:49 09/11/17 11:49 General appearance: Present: cooperative, mild distress, A&O X 3, pleasant, obese, answers questions appropriately Exam: CVS: RRR Lungs: CTAB Abd: Soft, Non-distended, + TTP Ext: no edema. Left forarm with linear rash Internal Medicine: Result - Labs CBC & Chem 7: 09/11/17 04:59 09/11/17 07:11 Labs: Short CBC 09/11/17 Range/Units 04:59 WBC 7.0 (4.3-11.1) K/mcL Hgb 12.4 (11.5-15.4) g/dL Hct 35.2 L (35.3-44.9) % Plt Count 231 (140-400) K/mcL Neutrophils # 3.4 (1.6-8.9) K/mcL BMP 09/11/17 07:11 Sodium 138 Potassium 3.4 L D Chloride 107 Carbon Dioxide 24 BUN 7 Creatinine 0.69 Glucose 102 H Calcium 8.4 L Consult Discharge Plan - Plan Additional Instructions: Soft diet as tolerated Referrals: Maria Esther Dodson MD [Partnered Physician] - 09/24/17 9:35 am (hospital follow- up) Esvin-Leah Mccray DO [Primary Care Provider] -
--- NOTE | 2017-09-11 16:33 | Discharge Summary ---
Date of Encounter: 09/11/17 Time of Encounter: 16:31 - Discharge Diagnosis (1) Typhlitis Priority: Primary Status: Resolved (2) Intractable abdominal pain Priority: Secondary Status: Acute (3) Colitis presumed infectious Priority: Secondary Status: Acute (4) Marijuana abuse Priority: Secondary Status: Chronic (5) Nausea Priority: Secondary Status: Acute (6) Sepsis Priority: Secondary Status: Acute Qualifiers: Sepsis type: sepsis due to unspecified organism Qualified Code(s): A41.9 - Sepsis, unspecified organism (7) Hepatitis C Priority: Secondary Status: Chronic Qualifiers: Viral hepatitis chronicity: chronic Hepatic coma status: without hepatic coma Qualified Code(s): B18.2 - Chronic viral hepatitis C - Discharge Medications Prescriptions: OxyCODONE/APAP 5/325 [Percocet 5/325 MG] 1 each PO Q8HR PRN #20 tablet PRN Reason: Moderate to Severe Pain Ciprofloxacin [Cipro] 500 mg PO BID #20 tablet metroNIDAZOLE [Flagyl] 500 mg PO TID 10 Days #30 tablet Home Medications: Gabapentin [Neurontin] 600 mg PO TID 01/26/17 [History] Ciprofloxacin [Cipro] 500 mg PO BID #20 tablet 09/11/17 [Rx] Ondansetron [Zofran] 4 mg PO Q8HR #20 tablet 09/11/17 [Rx] OxyCODONE/APAP 5/325 [Percocet 5/325 MG] 1 each PO Q8HR PRN #20 tablet 09/11/17 [Rx] metroNIDAZOLE [Flagyl] 500 mg PO TID 10 Days #30 tablet 09/11/17 [Rx] Allergies/Adverse Reactions: 3 Allergy/AdvReac Type Severity Reaction Status Date / Time cinnamon [Cinnamon] Allergy Swelling Verified 09/06/17 19:28 of Lip/Tongue/Throat Date of admission: 09/06/17 21:50 Primary care physician: Leah Mcallister Discharging clinician: Hang Richard - Patient Status Disposition: Home, Self-Care Condition: Good Functional capacity at discharge: independent ambulation Overall status at discharge: patient is progressing back to baseline - Discharge Instructions Follow Up With: Maria Esther Dodson MD [Partnered Physician] - 09/24/17 9:35 am (hospital follow- up) Esvin-Leah Mccray DO [Primary Care Provider] - Additional Instructions: Soft diet as tolerated - Diet and Activity Activity: increase activity as tolerated Diet: other (Soft diet as tolerated) Hospital course: Ms. Castellon is a 27 year old female with a previous history of colitis presented to the emergency room complaining of severe right lower quadrant pain that started at 3 AM on day of admission. Describes as 10 out of 10 in intensity. Non-quantified fevers heart rate is 126 and white blood cell count is 14.1. She had a prior episode at the beginning of his year in January where she was treated by Dr. Fernandes as colitis. She did not follow up with anyone for colonoscopy after that visit. Patient denies a family history of Crohn's or ulcerative colitis. CT scan of the abdomen shows inflammation of the pericecal fat just like in January of this year. The patient has not been able to keep anything down due to constant nausea, surgery was called and recommended admission to [facility], she is dehydrated. Surgery was consulted, patient diagnosed with typhilitis. She was placed NPO, and Cipro, Flagyl was continued. She was afebrile and did not have leukocytosis. She was able to advance diet after 3 days of bowel rest. She was discharged home in stable condition. She is scheduled for follow-up with Surgery as outpatient, and plan for colonoscopy in 6-8 weeks. She is discharged with 10 days of Cipro/ Flagyl to complete 15 days of treatment, Zofran and Percocet for symptomatic relief. - Time Spent with Patient Total time spent providing and/or coordinating discharge services: - Constitutional Vitals: Temp Pulse Resp BP Pulse Ox 98.0 F 73 16 107/74 98 09/11/17 11:49 09/11/17 11:49 09/11/17 11:49 09/11/17 11:49 09/11/17 11:49 General appearance: Present: cooperative, mild distress, A&O X 3, pleasant, obese, answers questions appropriately Exam: - Eyes normal ocular movement - ENT normal mucosa, atraumatic, normocephalic - Neck Neck exam: trachea midline - Respiratory normal respiratory effort, clear to auscultation - Cardiovascular Cardiovascular exam: Present: RRR - Abdomen Abdomen: Present: bowel sounds present, soft, tender (improved) Abdominal Tenderness: RLQ - Neurologic CN 2-12 grossly intact - Musculoskeletal normal gait, normal posture
[2017-09-15 07:56] LABS: HCV Genotype by Sequencing 1A OR 1B
== END 2017-09-11 17:30 | disposition home or self-care (01) | DRG 872 ==
LOC: 3ANU 19:27 → EMEROO 19:27 → SUATTDRO 21:50 → 3ANU 22:25
PROVIDERS: ADMIT Internal Medicine; ATTEND Student in an Organized Health Care Education/Training Program

== ENCOUNTER 2020-08-22 20:58 | Observation (INO) ==
[2020-08-22 22:33] LABS: Basophils % 0.3 %; Eosinophils # 0.1 K/mcL (0.0-0.6); Eosinophils % 0.5 %; Hematocrit 33.2 % (35.3-44.9); Hemoglobin 11.2 g/dL (11.5-15.4); Immature Granulocytes % 0.4 % (0-4); Lymphocytes # 3.5 K/mcL (0.6-4.6); Lymphocytes % 25.7 %; Mean Corpuscular HGB Conc 33.7 g/dL (31.6-35.5); Mean Corpuscular Hemoglobin 32.7 pg (28.0-33.3); Mean Corpuscular Volume 97.1 fL (83.0-100.0); Mean Platelet Volume 8.8 fL (9.4-12.4); Monocytes # 0.6 K/mcL (0.0-1.3); Monocytes % 4.8 %; Neutrophils # 9.2 K/mcL (1.6-8.9); Platelet Count 313 K/mcL (140-400); Red Blood Count 3.42 M/mcL (3.82-4.97); Red Cell Distribution Width 13.1 % (11.5-14.5); Segmented Neutrophils % 68.3 %; White Blood Count 13.5 K/mcL (4.3-11.1)
[2020-08-22 22:38] LABS: INR 0.9; Prothrombin Time 10.9 Seconds (9.4-12.1)
[2020-08-22 22:48] LABS: Alanine Aminotransferase 15 Units/L (7-52); Albumin 3.3 g/dL (3.5-5.7); Albumin/Globulin Ratio 1.2 (1.1-2.2); Alkaline Phosphatase 32 Units/L (34-104); Aspartate Amino Transferase 16 Units/L (13-39); BUN/Creatinine Ratio 22 (6-26); Bilirubin,Direct 0.1 mg/dL (0.0-0.2); Bilirubin,Indirect 0.2 mg/dL (0.0-1.0); Bilirubin,Total 0.3 mg/dL (0.3-1.0); Blood Urea Nitrogen 10 mg/dL (6-20); Calcium 8.4 mg/dL (8.6-10.3); Carbon Dioxide 22 mEq/L (23-29); Chloride 106 mEq/L (98-107); Globulin 2.7 g/dL (2.4-3.5); Glucose 84 mg/dL (70-105); Osmolality,Calculated 278 (280-300); Potassium 3.6 mEq/L (3.5-5.1); Sodium 135 mEq/L (136-145); eGFR For African Americans > 60 (> 60); eGFR For Non-African Americans > 60 (> 60)
[2020-08-22] MEDS ORDERED: 0.9 % Sodium Chloride 1,000 ML IVC ONE (23:10)
[2020-08-22] MEDS ORDERED: *HR* FentaNYL (PF) 100 MCG/2 ML VIAL IVP ONE (23:11)
[2020-08-23 01:08] LABS: Candida DNA DETECTED (Not Detect); Gardnerella DNA Not Detected (Not Detect); Trichomonas DNA Not Detected (Not Detect)
[2020-08-23] MEDS ORDERED: Acetaminophen 325 MG TABLET PO PRN (01:08)
[2020-08-23] MEDS ORDERED: Ondansetron 4 MG/2 ML VIAL IVP PRN (01:08)
[2020-08-23] MEDS ORDERED: Naloxone 0.4 MG/ML INJ IVP PRN (01:08)
[2020-08-23] MEDS ORDERED: 0.9 % Sodium Chloride 1,000 ML IVC ONE (01:46)
[2020-08-23] MEDS: 0.9 % Sodium Chloride 1,000 ML IVC SCH ×2 (01:46→02:51)
[2020-08-23] MEDS: Morphine Sulfate 2 MG/ML SYRINGE IVP PRN ×2 (02:51→07:04)
[2020-08-23 05:47] LABS: Prothrombin Time 11.4 Seconds (9.4-12.1)
[2020-08-23 05:48] LABS: Basophils % 0.3 %; Eosinophils # 0.1 K/mcL (0.0-0.6); Eosinophils % 0.6 %; Hematocrit 29.7 % (35.3-44.9); Hemoglobin 9.8 g/dL (11.5-15.4); Immature Granulocytes % 0.4 % (0-4); Lymphocytes # 3.6 K/mcL (0.6-4.6); Lymphocytes % 25.4 %; Mean Corpuscular Volume 97.1 fL (83.0-100.0); Mean Platelet Volume 8.7 fL (9.4-12.4); Monocytes # 0.7 K/mcL (0.0-1.3); Neutrophils # 9.7 K/mcL (1.6-8.9); Platelet Count 272 K/mcL (140-400); Red Blood Count 3.06 M/mcL (3.82-4.97); Red Cell Distribution Width 13.2 % (11.5-14.5); Segmented Neutrophils % 68.3 %; White Blood Count 14.2 K/mcL (4.3-11.1)
[2020-08-23 06:08] LABS: % Iron Saturation 27 % (15-50); BUN/Creatinine Ratio 18 (6-26); Blood Urea Nitrogen 7 mg/dL (6-20); Calcium 7.8 mg/dL (8.6-10.3); Carbon Dioxide 22 mEq/L (23-29); Chloride 110 mEq/L (98-107); Glucose 88 mg/dL (70-105); Iron 106 mcg/dL (50-170); Magnesium 1.6 mg/dL (1.6-2.6); Osmolality,Calculated 281 (280-300); Phosphorous 2.4 mg/dL (2.7-4.5); Potassium 3.7 mEq/L (3.5-5.1); Sodium 137 mEq/L (136-145); Transferrin 281 mg/dL (203-362); eGFR For African Americans > 60 (> 60); eGFR For Non-African Americans > 60 (> 60)
[2020-08-23 06:25] LABS: Ferritin 26 ng/mL (10-120)
[2020-08-23 08:25] VITALS: BP 106/53
[2020-08-23] MEDS ORDERED: Acetaminophen IV 500 MG/50 ML INFUS..BTL IVPB ONE (09:28)
[2020-08-23] MEDS ORDERED: polyethylene glycoL 3350 17 GM POWD.PACK PO SCH (10:11)
[2020-08-23 10:30] LABS: Bilirubin,Urine Negative (Negative); Blood,Urine Negative (Negative); Clarity,Urine Clear (Clear); Color,Urine Colorless (Yellow); Glucose,Urine (UA) Normal (Normal); Ketones,Urine Negative (Negative); Leukocyte Esterase,Urine Negative (Negative); Nitrite,Urine Negative (Negative); PH,Urine 7.5 pH Units (5.0-8.0); Protein,Urine Negative (Neg-Trace); Specific Gravity,Urine 1.008 (1.010-1.025); Urobilinogen,Urine Normal (Normal)
[2020-08-23 11:15] LABS: Amphetamine Screen,Urine Negative ng/mL (Cutoff=1000); Barbiturate Screen,Urine Negative ng/mL (Cutoff=200); Benzodiazepines Screen,Urine Negative ng/mL (Cutoff=200); Cannabinoid Screen,Urine Positive ng/mL (Cutoff = 50); Cocaine Screen,Urine Negative ng/mL (Cutoff= 300); Opiate Screen,Urine Positive ng/mL (Cutoff=300); Phencyclidine Screen,Urine Negative ng/mL (Cutoff=25)
[2020-08-23] MEDS ORDERED: Piperacillin/Tazobactam 3.375 GM in 0.9 % Sodium Chloride Mini Bag 100 ML IVPB SCH (16:00)
[2020-08-23] MEDS ORDERED: Sennosides 8.6 MG TABLET PO ONE (21:00)
== END 2020-08-23 10:40 | disposition left against medical advice (07) ==
LOC: EMEROOARM 20:58 → 3BNU 20:58
PROVIDERS: ADMIT Internal Medicine; ATTEND Internal Medicine

== ENCOUNTER 2021-01-26 15:41 | Inpatient (IN) ==
[2021-01-26] MEDS ORDERED: Famotidine 20 MG/2 ML VIAL IVP PRN (15:57)
[2021-01-26] MEDS ORDERED: Naloxone 0.4 MG/ML INJ IVP PRN ×2 (15:57→17:37)
[2021-01-26] MEDS ORDERED: Azithromycin 500 MG in 0.9 % Sodium Chloride 250 ML IVPB ONE (15:57)
[2021-01-26] MEDS ORDERED: Metoclopramide 10 MG/2 ML VIAL IVP PRN (15:57)
[2021-01-26] MEDS ORDERED: *HR* Nalbuphine 10 MG/ML AMPUL IV PRN (15:57)
[2021-01-26 16:59] LABS: Basophils # 0.1 K/mcL (0.0-0.2); Basophils % 0.3 %; Eosinophils # 0.1 K/mcL (0.0-0.6); Eosinophils % 0.4 %; Hematocrit 34.6 % (35.3-44.9); Hemoglobin 11.5 g/dL (11.5-15.4); Immature Granulocytes % 0.7 % (0-4); Lymphocytes # 2.6 K/mcL (0.6-4.6); Lymphocytes % 15.4 %; Mean Corpuscular HGB Conc 33.2 g/dL (31.6-35.5); Mean Corpuscular Hemoglobin 31.7 pg (28.0-33.3); Mean Corpuscular Volume 95.3 fL (83.0-100.0); Mean Platelet Volume 9.3 fL (9.4-12.4); Monocytes # 0.7 K/mcL (0.0-1.3); Neutrophils # 13.3 K/mcL (1.6-8.9); Platelet Count 410 K/mcL (140-400); Red Blood Count 3.63 M/mcL (3.82-4.97); Red Cell Distribution Width 13.2 % (11.5-14.5); Segmented Neutrophils % 79.2 %; White Blood Count 16.7 K/mcL (4.3-11.1)
[2021-01-26 17:10] LABS: Amphetamine Screen,Urine Negative ng/mL (Cutoff=1000); Barbiturate Screen,Urine Negative ng/mL (Cutoff=200); Benzodiazepines Screen,Urine Negative ng/mL (Cutoff=200); Cannabinoid Screen,Urine Negative ng/mL (Cutoff = 50); Cocaine Screen,Urine Negative ng/mL (Cutoff= 300); Opiate Screen,Urine Negative ng/mL (Cutoff=300); Phencyclidine Screen,Urine Negative ng/mL (Cutoff=25)
[2021-01-26 17:11] LABS: Protein/Creatinine Ratio,Urine 0.24 mg/mg (0.00-0.20)
[2021-01-26 17:30] LABS: Influenza A PCR Negative (Negative); Influenza B PCR Negative (Negative); Resp. Syncytial Virus PCR Negative (Negative)
[2021-01-26 17:31] LABS: SARS-CoV-2 by PCR (In House) Negative (Negative)
[2021-01-26] MEDS ORDERED: Ropivacaine/PF 0.2% 20 ML VIAL EP ONE (17:37)
[2021-01-26] MEDS ORDERED: Ondansetron 4 MG/2 ML VIAL IVP PRN (17:37)
[2021-01-26] MEDS ORDERED: EPHEDrine 50 MG/ML VIAL IVP PRN (17:37)
[2021-01-26 17:39] LABS: Alanine Aminotransferase 12 Units/L (7-52); Aspartate Amino Transferase 13 Units/L (13-39); BUN/Creatinine Ratio 15 (6-26); Blood Urea Nitrogen 9 mg/dL (6-20); Lactate Dehydrogenase 108 Units/L (140-271); Uric Acid 4.6 mg/dL (2.3-7.6); eGFR For African Americans > 60 (> 60); eGFR For Non-African Americans > 60 (> 60)
[2021-01-26] MEDS: Oxytocin 20 units/ LR 1000 mL 20 UNIT/1,000 ML BAG IVC SCH (20:43)
[2021-01-26] MEDS: Ringers Solution, Lactated 1,000 ML IVC SCH (23:33)
[2021-01-27] MEDS: Epidural Premix (fent/bupiv) 110 ML EP SCH ×3 (03:05→15:43)
[2021-01-27] MEDS: Ringers Solution, Lactated 1,000 ML IVC SCH (09:37)
[2021-01-27] MEDS ORDERED: Ropivacaine/PF 0.2% 20 ML VIAL ONE (10:49)
[2021-01-27] MEDS ORDERED: *HR* FentaNYL (PF) 100 MCG/2 ML VIAL ONE ×3 (10:49→19:05)
[2021-01-27] MEDS ORDERED: Azithromycin 500 MG in 0.9 % Sodium Chloride 250 ML IVPB ONE (13:18)
[2021-01-27] MEDS: Oxytocin 20 units/ LR 1000 mL 20 UNIT/1,000 ML BAG IVC SCH (14:50)
[2021-01-27] MEDS ORDERED: Lidocaine/EPI 1:200k 2% PF 20 ML VIAL ONE (19:05)
[2021-01-27] MEDS ORDERED: Ondansetron 4 MG/2 ML VIAL ONE (19:32)
[2021-01-27] MEDS ORDERED: Ringers Solution, Lactated 1,000 ML ONE ×2 (19:34→20:15)
[2021-01-27] MEDS ORDERED: *HR* Oxytocin 10 UNIT/ML VIAL IM ONE ×2 (19:53→20:15)
[2021-01-27] MEDS ORDERED: CeFAZolin 2,000 MG/50 ML BAG IVPB ONE (20:00)
[2021-01-27] MEDS ORDERED: *HR* Midazolam HCl 2 MG/2 ML VIAL ONE (20:00)
[2021-01-27] MEDS ORDERED: Ketamine *HR* 500 MG/10 ML MDV ONE (20:03)
[2021-01-27] MEDS ORDERED: *HR* Morphine Sulfate/PF 10 MG/10 ML AMPUL ONE (20:06)
[2021-01-27] MEDS ORDERED: *HR* OxyCODONE Immed Rel 5 MG TABLET PO PRN (20:24)
[2021-01-27] MEDS ORDERED: Naloxone 0.4 MG/ML INJ IVP PRN ×2 (20:24→22:43)
[2021-01-27] MEDS ORDERED: Ondansetron 4 MG/2 ML VIAL IVP PRN ×2 (20:24→22:43)
[2021-01-27] MEDS ORDERED: *HR* FentaNYL (PF) 100 MCG/2 ML VIAL IVP PRN (20:24)
[2021-01-27] MEDS ORDERED: Acetaminophen IV 1,000 MG/100 ML BAG IVPB ONE (20:28)
[2021-01-27] MEDS ORDERED: Simethicone 80 MG TAB.CHEW PO PRN (22:43)
[2021-01-27] MEDS ORDERED: Metoclopramide 10 MG/2 ML VIAL IVP PRN (22:43)
[2021-01-27] MEDS ORDERED: Sennosides 8.6 MG TABLET PO PRN (22:43)
[2021-01-27] MEDS ORDERED: Ibuprofen 600 MG TABLET PO PRN (22:43)
[2021-01-27] MEDS ORDERED: Acetaminophen 325 MG TABLET PO PRN (22:43)
[2021-01-27] MEDS ORDERED: Ringers Solution, Lactated 1,000 ML IVC SCH (22:43)
[2021-01-28] MEDS: Oxytocin 20 units/ LR 1000 mL 20 UNIT/1,000 ML BAG IVC SCH ×2 (00:46→10:42)
[2021-01-28] MEDS: *HR* OxyCODONE Immed Rel 5 MG TABLET PO PRN ×6 (00:46→23:05)
[2021-01-28] MEDS: Acetaminophen IV 1,000 MG/100 ML BAG IVPB PRN ×2 (03:07→09:26)
[2021-01-28 04:08] LABS: Basophils # 0.1 K/mcL (0.0-0.2); Basophils % 0.3 %; Eosinophils % 0.1 %; Hematocrit 28.7 % (35.3-44.9); Immature Granulocytes % 0.8 % (0-4); Lymphocytes # 2.3 K/mcL (0.6-4.6); Lymphocytes % 8.6 %; Mean Corpuscular HGB Conc 33.1 g/dL (31.6-35.5); Mean Corpuscular Hemoglobin 31.7 pg (28.0-33.3); Mean Corpuscular Volume 95.7 fL (83.0-100.0); Mean Platelet Volume 8.9 fL (9.4-12.4); Monocytes % 3.8 %; Platelet Count 310 K/mcL (140-400); Red Cell Distribution Width 13.2 % (11.5-14.5); Segmented Neutrophils % 86.4 %
[2021-01-28 04:10] LABS: Hemoglobin 9.5 g/dL (11.5-15.4); Neutrophils # 22.7 K/mcL (1.6-8.9); White Blood Count 26.3 K/mcL (4.3-11.1)
[2021-01-28] MEDS: Ketorolac 30 MG/ML VIAL IVP SCH ×2 (06:28→13:39)
[2021-01-28] MEDS: Prenatal Vit/FA 1 EACH TABLET PO SCH (08:29)
[2021-01-28] MEDS ORDERED: NON-FORMULARY MEDICATION 1 EACH EACH (Pnv No.95/Ferrous Fum/Folic Ac [Prenatal Caplet] 1 E PO SCH (09:00)
[2021-01-28] MEDS: Ibuprofen 600 MG TABLET PO SCH (18:50)
[2021-01-29] MEDS: Ibuprofen 600 MG TABLET PO SCH ×3 (00:50→12:02)
[2021-01-29] MEDS: *HR* OxyCODONE Immed Rel 5 MG TABLET PO PRN ×3 (03:29→12:03)
[2021-01-29] MEDS: Prenatal Vit/FA 1 EACH TABLET PO SCH (07:52)
[2021-01-29 08:10] VITALS: BP 116/79
[2021-01-29] MEDS ORDERED: Etonogestrel 68 MG IMPLANT IL ONE (09:13)
== END 2021-01-29 12:05 | disposition home or self-care (01) | DRG 540 ==
LOC: 1NENULAB 15:41 → 1NENUOBS 01-27 22:42
PROVIDERS: ADMIT Obstetrics & Gynecology; ATTEND Obstetrics & Gynecology